=== PATIENT | male | born 1930 | race Caucasian/White ===

== ENCOUNTER 2020-11-22 12:00 | Observation (INO) | payer MEDICARE, MEDICAID ==
[2020-11-22 13:02] LABS: ANION GAP 9.2 mmol/L (5-15); CHLORIDE,CL 105 mmol/L (98-107); SODIUM,NA 140 mmol/L (136-145)
--- NOTE | 2020-11-22 13:05 | CT ---
[id number] CT/CT Head WO IV EXAM: CT Head WO IV CLINICAL DATA: WEAKNESS. COMPARISON STUDY: None FINDINGS: No intracranial hemorrhage, extra-axial fluid collection, mass, or acute ischemia. Generalized parenchymal atrophy with scattered areas of nonspecific white matter disease, commonly seen as sequela of chronic microvascular ischemia. Soft tissues are unremarkable. Paranasal sinuses and mastoid air cells are clear. IMPRESSION: No acute intracranial findings. Tom Oakley DO 11/22/20 [id number] Thank you for allowing us to participate in the care of your patient.
--- NOTE | 2020-11-22 13:09 | CR ---
[id number] RAD/RAD Chest PA or AP 1V EXAM: RAD Chest PA or AP 1V INDICATION: WEAKNESS. COMPARISON: November 22, 2020. DISCUSSION: Cardiomediastinal silhouette is stable in size and contour. No infiltrate, effusion, pneumothorax, or edema. IMPRESSION: No acute cardiopulmonary abnormality. Tom Oakley DO 11/22/20 [phone] Thank you for allowing us to participate in the care of your patient.
[2020-11-22 13:26] LABS: BARBITURATE SCREEN,URINE NEGATIVE (NEGATIVE); BENZODIAZEPINES SCREEN,URINE NEGATIVE (NEGATIVE); METHAMPHETAMINE SCREEN, URINE NEGATIVE (NEGATIVE); THC SCREEN,URINE 50 NG/ML NEGATIVE (NEGATIVE)
[2020-11-22 13:27] LABS: BUPRENORPHINE SCREEN,URINE NEGATIVE (NEGATIVE)
--- NOTE | 2020-11-22 13:32 | EDM.PDOC ---
ED HPI GENERAL MEDICAL PROBLEM - General Stated Complaint: ER Time Seen by Provider: 11/22/20 12:00 Source of Information: Reports: Patient History Limitations: Reports: No Limitations - History of Present Illness INITIAL COMMENTS - FREE TEXT/NARRATIVE: Pt. presents to ER via EMS. They state that a friend of the patient called 911 at patient's request. Pt. has a history of severe Parkinson's disease. He also previously lived in [place]. The combination of the Parkinson's disease and [place] accent make it very difficult to understand the patient. Pt. offers no complaint. We were able to ascertain that he feels weak and is unsteady on his feet. Pt. was able to relate that he was not experiencing any chest pain or shortness of breath. Denies any dysuria. No headache. No numbness/tingling in extremities or face. Denies any abdominal discomfort. No chills. No nausea or vomiting. His medical records from [facility] were reviewed, and he did have a productive cough in the clinic on 11/09/2020 but was not started on any antibiotics. His lung sounds today are clear. Pt. neighbor, Prabha Steel ([phone]) did contact the ER. She and her , George Levi ([phone]) indicated that they are the patient's primary caregivers, and look in on him several times a day. They state that "patient has been going downhill" for about 2 weeks. They state that he has not been getting off of his chair much. She states that he has not been eating his home delivered meals. Attempted to contact patient's ex , dora, who is listed as next of kin but she did not answer. Neighbors have been primarily providing all of Emil's care, getting changed, bringing meals, helping him with ADLs and shopping, etc. Onset: Today Onset Date: 11/22/20 Location: Reports: Generalized - Related Data Allergies Allergy/AdvReac Type Severity Reaction Status Date / Time No Known Allergies Allergy Verified 11/22/20 13:49 ED ROS GENERAL - Review of Systems Review Of Systems: Unable To Obtain Reason Not Obtained: speech difficulty. See HPI. ED EXAM, GENERAL - Physical Exam Exam: See Below Exam Limited By: No Limitations General Appearance: Alert, WD/WN, No Apparent Distress Eye Exam: Bilateral Eye: EOMI, Normal Fundi Throat/Mouth: Normal Lips, Normal Oropharynx, No Airway Compromise Head: Atraumatic, Normocephalic Neck: Supple, Non-Tender Respiratory/Chest: No Respiratory Distress, Lungs Clear, Normal Breath Sounds, No Accessory Muscle Use, Chest Non-Tender Cardiovascular: Normal Peripheral Pulses, Regular Rate, Rhythm, No Murmur Peripheral Pulses: 4+: Radial (L) GI/Abdominal: Soft, Non-Tender, No Distention, No Mass (Male) Exam: Deferred Rectal (Males) Exam: Deferred, Other (large amount of hard stool stuck in hair of buttocks) Back Exam: Normal Inspection Extremities: Normal Inspection, Normal Range of Motion, Non-Tender, No Pedal Edema, Normal Capillary Refill Neurological: Alert, CN II-XII Intact, No Motor/Sensory Deficits, Other (Equal outside sales consultant strength. Equal strength with plantar and dorsiflexion. No facial droop. No obvious focal neuro findings, but pt. is largely unable to submit to neuro exam. Significant tremor noted.) Psychiatric: Flat Affect Skin Exam: Warm, Intact, Normal Color, No Rash Lymphatic: No Adenopathy Course - Vital Signs Last Recorded V/S: Last Vital Signs Temp 36.9 C 11/22/20 12:00 Pulse 81 11/22/20 12:00 Resp 16 11/22/20 12:00 BP 167/89 H 11/22/20 12:00 Pulse Ox 99 11/22/20 12:00 - Orders/Labs/Meds Orders: Active Orders 24 hr Category Date Time Status Patient Status [ADT] Routine ADT 11/22/20 14:02 Ordered CULTURE BLOOD [BC] Stat Lab 11/22/20 12:28 Received CULTURE BLOOD [BC] Stat Lab 11/22/20 12:31 Received Sodium Chloride 0.9% [Saline Flush] Med 11/22/20 12:13 Active 10 ml FLUSH ASDIRECTED PRN Blood Culture x2 Reflex Set [OM.PC] Stat Oth 11/22/20 12:14 Ordered Peripheral IV Insertion Adult [OM.PC] Routine Oth 11/22/20 12:14 Ordered Medication Orders Sodium Chloride (Sodium Chloride 0.9% 10 Ml Syringe) 10 ml FLUSH ASDIRECTED PRN PRN Reason: Keep Vein Open Labs: Laboratory Tests 11/22/20 11/22/20 11/22/20 Range/Units 12:25 12:28 12:28 WBC 5.8 (4.0-10.0) x10^3/uL RBC 4.17 L (4.5-6.0) x10^6/uL Hgb 13.7 L (14.0-18.0) g/dL Hct 39.9 L (40.0-52.0) % MCV 95.7 H (78.0-93.0) fL MCH 32.9 H (26.0-32.0) pg MCHC 34.3 (32.0-36.0) g/dL RDW Coeff of Kala 13.1 (10.0-15.0) % Plt Count 106 L (130-400) x10^3/uL Immature Gran % (Auto) 0.20 (0.00-0.43) % Neut % (Auto) 69.3 (50.0-80.0) % Lymph % (Auto) 18.3 L (25.0-50.0) % [place] % (Auto) 6.5 (2.0-11.0) % Eos % (Auto) 5.0 H (0.0-4.0) % Baso % (Auto) 0.7 (0.2-1.2) % Neut # (Auto) 4.1 (1.8-7.7) x10^3/uL Lymph # (Auto) 1.1 (1.0-4.8) x10^3/uL [place] # (Auto) 0.4 (0.0-0.8) x10^3/uL Eos # (Auto) 0.3 (0.0-0.5) x10^3/uL Baso # (Auto) 0.0 (0.0-0.2) x10^3/uL Immature Gran # (Auto) 0.01 (0.00-0.07) x10^3/uL PT 11.6 (9.9-12.5) SEC INR 1.0 L (2.0-3.5) APTT (25.6-32.8) SEC Sodium (136-145) mmol/L Potassium (3.5-5.1) mmol/L Chloride (98-107) mmol/L Carbon Dioxide (21-32) mmol/L Anion Gap (5-15) mmol/L BUN (7-18) mg/dL Creatinine (0.70-1.30) mg/dL Est Cr Clr Drug Dosing Estimated GFR (MDRD) Glucose (70-99) mg/dL Lactic Acid (0.4-2.0) mmol/L Calcium (8.5-10.1) mg/dL Corrected Calcium (8.5-10.1) mg/dL Phosphorus (2.6-4.7) mg/dL Magnesium (1.8-2.4) mg/dL Total Bilirubin (0.2-1.0) mg/dL AST (15-37) U/L ALT (16-63) U/L Alkaline Phosphatase (46-116) U/L Troponin I High Sens (<=76) ng/L C-Reactive Protein (<=0.9) mg/dL NT-Pro-B Natriuret Pep (<=450) pg/mL Total Protein (6.4-8.2) g/dL Albumin (3.4-5.0) g/dL Globulin Albumin/Globulin Ratio TSH, Ultra Sensitive (0.358-3.74) uIU/mL Urine Color (YELLOW) Urine Appearance (CLEAR) Urine pH (5.0-8.0) Ur Specific [place] Urine Protein (NEGATIVE) mg/dL Urine Glucose (UA) (NEGATIVE) mg/dL Urine Ketones (NEGATIVE) mg/dL Urine Occult Blood (NEGATIVE) Urine Nitrite (NEGATIVE) Urine Bilirubin (NEGATIVE) Urine Urobilinogen (0.2) EU/dL Ur Leukocyte Esterase (NEGATIVE) Urine Opiates Screen (NEGATIVE) Ur Buprenorphine Scrn (NEGATIVE) Ur Oxycodone Screen (NEGATIVE) Urine Methadone Screen (NEGATIVE) Ur Barbiturates Screen (NEGATIVE) Ur Phencyclidine Scrn (NEGATIVE) Ur Amphetamine Screen (NEGATIVE) U Methamphetamines Scrn (NEGATIVE) Urine MDMA Screen (NEGATIVE) U Benzodiazepines Scrn (NEGATIVE) U Cocaine Metab Screen (NEGATIVE) U Marijuana (THC) Screen (NEGATIVE) Ethyl Alcohol (0-3) mg/dL SARS CoV-2 RNA Rapid GENARO Negative (NEGATIVE) 11/22/20 11/22/20 11/22/20 Range/Units 12:28 12:28 12:28 WBC (4.0-10.0) x10^3/uL RBC (4.5-6.0) x10^6/uL Hgb (14.0-18.0) g/dL Hct (40.0-52.0) % MCV (78.0-93.0) fL MCH (26.0-32.0) pg MCHC (32.0-36.0) g/dL RDW Coeff of Kala (10.0-15.0) % Plt Count (130-400) x10^3/uL Immature Gran % (Auto) (0.00-0.43) % Neut % (Auto) (50.0-80.0) % Lymph % (Auto) (25.0-50.0) % [place] % (Auto) (2.0-11.0) % Eos % (Auto) (0.0-4.0) % Baso % (Auto) (0.2-1.2) % Neut # (Auto) (1.8-7.7) x10^3/uL Lymph # (Auto) (1.0-4.8) x10^3/uL [place] # (Auto) (0.0-0.8) x10^3/uL Eos # (Auto) (0.0-0.5) x10^3/uL Baso # (Auto) (0.0-0.2) x10^3/uL Immature Gran # (Auto) (0.00-0.07) x10^3/uL PT (9.9-12.5) SEC INR (2.0-3.5) APTT 24.1 L (25.6-32.8) SEC Sodium 140 (136-145) mmol/L Potassium 4.2 (3.5-5.1) mmol/L Chloride 105 (98-107) mmol/L Carbon Dioxide 30 (21-32) mmol/L Anion Gap 9.2 (5-15) mmol/L BUN 24 H (7-18) mg/dL Creatinine 0.8 (0.70-1.30) mg/dL Est Cr Clr Drug Dosing TNP Estimated GFR (MDRD) > 60 Glucose 97 (70-99) mg/dL Lactic Acid 0.9 (0.4-2.0) mmol/L Calcium 9.0 (8.5-10.1) mg/dL Corrected Calcium 9.2 (8.5-10.1) mg/dL Phosphorus 3.1 (2.6-4.7) mg/dL Magnesium 2.0 (1.8-2.4) mg/dL Total Bilirubin 0.6 (0.2-1.0) mg/dL AST 20 (15-37) U/L ALT 21 (16-63) U/L Alkaline Phosphatase 74 (46-116) U/L Troponin I High Sens 13 (<=76) ng/L C-Reactive Protein < 0.2 (<=0.9) mg/dL NT-Pro-B Natriuret Pep 1167 H (<=450) pg/mL Total Protein 6.8 (6.4-8.2) g/dL Albumin 3.7 (3.4-5.0) g/dL Globulin 3.1 Albumin/Globulin Ratio 1.19 TSH, Ultra Sensitive 0.079 L (0.358-3.74) uIU/mL Urine Color (YELLOW) Urine Appearance (CLEAR) Urine pH (5.0-8.0) Ur Specific [place] Urine Protein (NEGATIVE) mg/dL Urine Glucose (UA) (NEGATIVE) mg/dL Urine Ketones (NEGATIVE) mg/dL Urine Occult Blood (NEGATIVE) Urine Nitrite (NEGATIVE) Urine Bilirubin (NEGATIVE) Urine Urobilinogen (0.2) EU/dL Ur Leukocyte Esterase (NEGATIVE) Urine Opiates Screen (NEGATIVE) Ur Buprenorphine Scrn (NEGATIVE) Ur Oxycodone Screen (NEGATIVE) Urine Methadone Screen (NEGATIVE) Ur Barbiturates Screen (NEGATIVE) Ur Phencyclidine Scrn (NEGATIVE) Ur Amphetamine Screen (NEGATIVE) U Methamphetamines Scrn (NEGATIVE) Urine MDMA Screen (NEGATIVE) U Benzodiazepines Scrn (NEGATIVE) U Cocaine Metab Screen (NEGATIVE) U Marijuana (THC) Screen (NEGATIVE) Ethyl Alcohol < 3 (0-3) mg/dL SARS CoV-2 RNA Rapid GENARO (NEGATIVE) 11/22/20 11/22/20 Range/Units 13:20 13:20 WBC (4.0-10.0) x10^3/uL RBC (4.5-6.0) x10^6/uL Hgb (14.0-18.0) g/dL Hct (40.0-52.0) % MCV (78.0-93.0) fL MCH (26.0-32.0) pg MCHC (32.0-36.0) g/dL RDW Coeff of Kala (10.0-15.0) % Plt Count (130-400) x10^3/uL Immature Gran % (Auto) (0.00-0.43) % Neut % (Auto) (50.0-80.0) % Lymph % (Auto) (25.0-50.0) % [place] % (Auto) (2.0-11.0) % Eos % (Auto) (0.0-4.0) % Baso % (Auto) (0.2-1.2) % Neut # (Auto) (1.8-7.7) x10^3/uL Lymph # (Auto) (1.0-4.8) x10^3/uL [place] # (Auto) (0.0-0.8) x10^3/uL Eos # (Auto) (0.0-0.5) x10^3/uL Baso # (Auto) (0.0-0.2) x10^3/uL Immature Gran # (Auto) (0.00-0.07) x10^3/uL PT (9.9-12.5) SEC INR (2.0-3.5) APTT (25.6-32.8) SEC Sodium (136-145) mmol/L Potassium (3.5-5.1) mmol/L Chloride (98-107) mmol/L Carbon Dioxide (21-32) mmol/L Anion Gap (5-15) mmol/L BUN (7-18) mg/dL Creatinine (0.70-1.30) mg/dL Est Cr Clr Drug Dosing Estimated GFR (MDRD) Glucose (70-99) mg/dL Lactic Acid (0.4-2.0) mmol/L Calcium (8.5-10.1) mg/dL Corrected Calcium (8.5-10.1) mg/dL Phosphorus (2.6-4.7) mg/dL Magnesium (1.8-2.4) mg/dL Total Bilirubin (0.2-1.0) mg/dL AST (15-37) U/L ALT (16-63) U/L Alkaline Phosphatase (46-116) U/L Troponin I High Sens (<=76) ng/L C-Reactive Protein (<=0.9) mg/dL NT-Pro-B Natriuret Pep (<=450) pg/mL Total Protein (6.4-8.2) g/dL Albumin (3.4-5.0) g/dL Globulin Albumin/Globulin Ratio TSH, Ultra Sensitive (0.358-3.74) uIU/mL Urine Color Light yellow (YELLOW) Urine Appearance Clear (CLEAR) Urine pH 7.0 (5.0-8.0) Ur Specific [place] 1.025 Urine Protein Negative (NEGATIVE) mg/dL Urine Glucose (UA) Negative (NEGATIVE) mg/dL Urine Ketones Negative (NEGATIVE) mg/dL Urine Occult Blood Negative (NEGATIVE) Urine Nitrite Negative (NEGATIVE) Urine Bilirubin Negative (NEGATIVE) Urine Urobilinogen 1.0 (0.2) EU/dL Ur Leukocyte Esterase Negative (NEGATIVE) Urine Opiates Screen Negative (NEGATIVE) Ur Buprenorphine Scrn Negative (NEGATIVE) Ur Oxycodone Screen Negative (NEGATIVE) Urine Methadone Screen Negative (NEGATIVE) Ur Barbiturates Screen Negative (NEGATIVE) Ur Phencyclidine Scrn Negative (NEGATIVE) Ur Amphetamine Screen Negative (NEGATIVE) U Methamphetamines Scrn Negative (NEGATIVE) Urine MDMA Screen Negative (NEGATIVE) U Benzodiazepines Scrn Negative (NEGATIVE) U Cocaine Metab Screen Negative (NEGATIVE) U Marijuana (THC) Screen Negative (NEGATIVE) Ethyl Alcohol (0-3) mg/dL SARS CoV-2 RNA Rapid GENARO (NEGATIVE) Meds: Medications Generic Name Dose Route Start Last Admin Trade Name Freq PRN Reason Stop Dose Admin Sodium Chloride 10 ml 11/22/20 12:13 Sodium Chloride 0.9% 10 Ml Syringe FLUSH ASDIRECTED PRN Keep Vein Open - Radiology Interpretation Free Text/Narrative:: CT brain negative for acute pathology Chest x-ray negative for acute pathology Departure - Departure Time of Disposition: 14:25 Disposition: Refer to Observation Clinical Impression: Weakness, Parkinson disease - Discharge Information Sepsis Event Note (ED) - Focused Exam Vital Signs: Vital Signs Temp Pulse Resp BP Pulse Ox 11/22/20 12:00 36.9 C 81 16 167/89 H 99 - Problem List Review Problem List Initiated/Reviewed/Updated: Yes - My Orders Last 24 Hours: My Active Orders 11/22/20 12:13 Sodium Chloride 0.9% [Saline Flush] 10 ml FLUSH ASDIRECTED PRN 11/22/20 12:14 Blood Culture x2 Reflex Set [OM.PC] Stat Peripheral IV Insertion Adult [OM.PC] Routine 11/22/20 12:28 CULTURE BLOOD [BC] Stat 11/22/20 12:31 CULTURE BLOOD [BC] Stat 11/22/20 14:02 Patient Status [ADT] Routine - Assessment/Plan Last 24 Hours: My Active Orders 11/22/20 12:13 Sodium Chloride 0.9% [Saline Flush] 10 ml FLUSH ASDIRECTED PRN 11/22/20 12:14 Blood Culture x2 Reflex Set [OM.PC] Stat Peripheral IV Insertion Adult [OM.PC] Routine 11/22/20 12:28 CULTURE BLOOD [BC] Stat 11/22/20 12:31 CULTURE BLOOD [BC] Stat 11/22/20 14:02 Patient Status [ADT] Routine Plan: Pt. will be admitted observation. No acute cause for patient's weakness found at this point. Discussed findings with caregivers and patient. He is unable to stand or walk, has not been able to eat or drink. Unable to ascertain code status from patient despite numerous attempts to do so. He did not seem to understand specifically what was being asked.Pt. will be kept a code 1 at this point. Will start patient on maintenance fluids for hydration. Attempted to contact [facility] [employer] to discuss patient, but there was no answer. Will order PT and OT for Monday, as well as health care social worker for possible placement in LTC facility. Does not meet criteria for acute admission.
[2020-11-22] MEDS ORDERED: Aspirin 325 MG Tab.EC PO PRN (15:35)
[2020-11-22] MEDS: Carbidopa/Levodopa 25-100 MG Tab PO SCH ×2 (19:27→19:31)
[2020-11-22] MEDS: Budesonide 0.5 MG/2 ML Neb Susp INH SCH (19:27)
[2020-11-22] MEDS: Donepezil 10 MG Tab PO SCH ×2 (19:27→19:31)
[2020-11-22] MEDS ORDERED: BUDESONIDE 90 MCG INH SCH (20:00)
[2020-11-23] MEDS: Sodium Chloride 0.9% 10 ML Syringe FLUSH PRN ×2 (06:16→19:56)
[2020-11-23] MEDS: Budesonide 0.5 MG/2 ML Neb Susp INH SCH ×2 (06:16→19:56)
[2020-11-23] MEDS: Cholecalciferol (Vitamin D3) 25 MCG Tab PO SCH (07:25)
[2020-11-23] MEDS: Carbidopa/Levodopa 25-100 MG Tab PO SCH ×3 (07:25→19:54)
[2020-11-23] MEDS: Multivitamins with Iron/Calcium/Folic Acid/Minerals Tab PO SCH (07:25)
[2020-11-23] MEDS: Furosemide 20 MG Tab PO SCH (07:25)
[2020-11-23] MEDS: Enoxaparin 40 MG/0.4 ML Syringe SUBCUT SCH (12:00)
[2020-11-23] MEDS: Donepezil 10 MG Tab PO SCH (19:54)
--- NOTE | 2020-11-24 07:12 | PCM.PN ---
- General Info Date of Service: 11/24/20 Admission Dx/Problem (Free Text): Pt. continues to be quite weak. Discussed findings with pt. cousin. His appetite has improved and he has been drinking. He has not had any fever or chills. No nausea, vomiting, or diarrhea. He has been up using a walker. No new focal neuro symptoms. No numbness/tingling in extremities. No problems with speech. No facial droop. Denies any vision loss or change. Functional Status: Reports: Pain Controlled - Review of Systems General: Reports: No Symptoms HEENT: Reports: No Symptoms Pulmonary: Reports: No Symptoms Cardiovascular: Reports: No Symptoms Gastrointestinal: Reports: No Symptoms Genitourinary: Reports: No Symptoms Musculoskeletal: Reports: No Symptoms Skin: Reports: No Symptoms Neurological: Reports: Weakness Psychiatric: Reports: No Symptoms - Patient Data Vitals - Most Recent: Last Vital Signs Temp 36.6 C 11/24/20 06:00 Pulse 82 11/24/20 06:00 Resp 16 11/24/20 06:00 BP 136/80 11/24/20 06:00 Pulse Ox 95 11/24/20 06:00 Weight - Most Recent: 75.75 kg I&O - Last 24 Hours: Intake & Output 11/23/20 11/24/20 11/24/20 22:59 06:59 14:59 Intake Total 50 Output Total 65 Balance -15 Lab Results Last 24 Hours: Laboratory Results - last 24 hr 11/23/20 Range/Units 07:15 WBC 5.8 (4.0-10.0) x10^3/uL RBC 4.21 L (4.5-6.0) x10^6/uL Hgb 13.9 L (14.0-18.0) g/dL Hct 39.8 L (40.0-52.0) % MCV 94.5 H (78.0-93.0) fL MCH 33.0 H (26.0-32.0) pg MCHC 34.9 (32.0-36.0) g/dL RDW Coeff of Kala 13.2 (10.0-15.0) % Plt Count 105 L (130-400) x10^3/uL [facility]us Results Last 24 Hours: Microbiology 11/22/20 12:31 Aerobic Blood Culture - Preliminary Blood - Venous - Lab Draw NO GROWTH AFTER 1 DAY Anaerobic Blood Culture - Preliminary NO GROWTH AFTER 1 DAY 11/22/20 12:28 Aerobic Blood Culture - Preliminary Blood - Venous NO GROWTH AFTER 1 DAY Anaerobic Blood Culture - Preliminary NO GROWTH AFTER 1 DAY Med Orders - Current: Current Medications Aspirin (Aspirin 325 Mg Tab.Ec) 325 mg PO DAILY PRN PRN Reason: Pain Budesonide (Budesonide 0.5 Mg/2 Ml Neb Susp) 1 mg INH BIDRT [facility] Last Admin: 11/23/20 19:56 Dose: Not Given Documented by: Carbidopa/Levodopa (Carbidopa/Levodopa 25-100 Mg Tab) 1 tab PO TID [facility] Last Admin: 11/23/20 19:54 Dose: Not Given Documented by: Cholecalciferol (Cholecalciferol (Vitamin D3) 25 Mcg Tab) 25 mcg PO DAILY [facility] Last Admin: 11/23/20 07:25 Dose: 25 mcg Documented by: Donepezil HCl (Donepezil 10 Mg Tab) 10 mg PO BEDTIME [facility] Last Admin: 11/23/20 19:54 Dose: Not Given Documented by: Enoxaparin Sodium (Enoxaparin 40 Mg/0.4 Ml Syringe) 40 mg SUBCUT DAILY@1200 [facility] Last Admin: 11/23/20 12:00 Dose: Not Given Documented by: Furosemide (Furosemide 20 Mg Tab) 20 mg PO DAILY [facility] Last Admin: 11/23/20 07:25 Dose: 20 mg Documented by: Multivitamins/Minerals (Multivitamins With Iron/Calcium/Folic Acid/Minerals Tab) 1 tab PO DAILY [facility] Last Admin: 11/23/20 07:25 Dose: 1 tab Documented by: Sodium Chloride (Sodium Chloride 0.9% 10 Ml Syringe) 10 ml FLUSH ASDIRECTED PRN PRN Reason: Keep Vein Open Last Admin: 11/23/20 19:56 Dose: 10 ml Documented by: - Exam Urinary Catheter Total Time: 0Days 3Hours General: Alert, Oriented HEENT: Pupils Equal, Pupils Reactive, EOMI, Mucous Membr. Moist/Scalp Level Neck: Supple Lungs: Clear to Auscultation, Normal Respiratory Effort Cardiovascular: Regular Rate, Regular Rhythm Skin: Warm, Dry, Intact Wound/Incisions: Healing Well Neurological: No New Focal Deficit Psy/Mental Status: Alert, Normal Affect, Normal Mood - Patient Data Lab Results Last 24 hrs: Laboratory Results - last 24 hr 11/23/20 Range/Units 07:15 WBC 5.8 (4.0-10.0) x10^3/uL RBC 4.21 L (4.5-6.0) x10^6/uL Hgb 13.9 L (14.0-18.0) g/dL Hct 39.8 L (40.0-52.0) % MCV 94.5 H (78.0-93.0) fL MCH 33.0 H (26.0-32.0) pg MCHC 34.9 (32.0-36.0) g/dL RDW Coeff of Kala 13.2 (10.0-15.0) % Plt Count 105 L (130-400) x10^3/uL Result Diagrams: 11/23/20 07:15 11/22/20 12:28 Justus Results Last 24 hrs: Microbiology 11/22/20 12:31 Aerobic Blood Culture - Preliminary Blood - Venous - Lab Draw NO GROWTH AFTER 1 DAY Anaerobic Blood Culture - Preliminary NO GROWTH AFTER 1 DAY 11/22/20 12:28 Aerobic Blood Culture - Preliminary Blood - Venous NO GROWTH AFTER 1 DAY Anaerobic Blood Culture - Preliminary NO GROWTH AFTER 1 DAY Sepsis Event Note - Evaluation Sepsis Screening Result: No Definite Risk - Focused Exam Vital Signs: Vital Signs Temp Pulse Resp BP Pulse Ox 11/24/20 06:00 36.6 C 82 16 136/80 95 11/23/20 22:00 36.9 C 105 H 16 145/86 H 93 L - Problem List Review Problem List Initiated/Reviewed/Updated: Yes - My Orders Last 24 Hours: My Active Orders 11/23/20 08:00 Cholecalciferol (Vitamin D3) [Vitamin D3] 25 mcg PO DAILY Furosemide [Lasix] 20 mg PO DAILY Multivitamins w-Iron/Ca/FA/Min [Thera M Plus] 1 tab PO DAILY 11/23/20 12:00 Enoxaparin [Lovenox] 40 mg SUBCUT DAILY@1200 11/26/20 07:00 CBC W/O DIFF,HEMOGRAM [HEME] Q3D 11/29/20 07:00 CBC W/O DIFF,HEMOGRAM [HEME] Q3D 12/02/20 07:00 CBC W/O DIFF,HEMOGRAM [HEME] Q3D 12/05/20 07:00 CBC W/O DIFF,HEMOGRAM [HEME] Q3D 12/08/20 07:00 CBC W/O DIFF,HEMOGRAM [HEME] Q3D 12/11/20 07:00 CBC W/O DIFF,HEMOGRAM [HEME] Q3D - Plan Plan:: Continue observation admission. PT and OT to see tomorrow to discuss placement in LTC vs. assisted living. Did discuss this with patient and his cousin.
[2020-11-24] MEDS: Budesonide 0.5 MG/2 ML Neb Susp INH SCH ×2 (07:45→21:07)
[2020-11-24] MEDS: Carbidopa/Levodopa 25-100 MG Tab PO SCH ×3 (08:24→21:07)
[2020-11-24] MEDS: Multivitamins with Iron/Calcium/Folic Acid/Minerals Tab PO SCH (08:24)
[2020-11-24] MEDS: Furosemide 20 MG Tab PO SCH (08:24)
[2020-11-24] MEDS: Cholecalciferol (Vitamin D3) 25 MCG Tab PO SCH (08:24)
[2020-11-24] MEDS: Enoxaparin 40 MG/0.4 ML Syringe SUBCUT SCH (11:44)
--- NOTE | 2020-11-24 18:46 | PCM.DCSUM1 ---
Discharge Summary - Discharge Data Discharge Date: 11/24/20 Discharge Disposition: DC/Tfer W/I Hosp To Swing 61 Condition: Good - Referral to Home Health Primary Care Physician: Mayte Howard NP - Discharge Diagnosis/Problem(s) (1) Parkinson disease SNOMED Code(s): 47818705 ICD Code: G20 - PARKINSON'S DISEASE Status: Acute Current Visit: No Problem Details: Stable at baseline. Continue home medications. (2) Weakness SNOMED Code(s): 17311577 ICD Code: R53.1 - WEAKNESS Status: Acute Current Visit: No Problem Details: Weakness generalized due to deconditioning age as well as parkinsonian disease. Unable to care for himself for ADLs at home. Social work to work with the patient on placement at the [facility]. - Patient Summary/Data Consults: Consultations 11/22/20 15:40 Consult to Physical Therapy [PT Evaluation and Treatment] [CONS] Routine 11/22/20 15:41 Consult to Case Management/Security And Compliance Analyst [CONS] Routine OT Evaluation and Treatment [CONS] Routine Hospital Course: Patient was admitted to the hospital on 11-22-20 under observation for concerns from the emergency department of generalized weakness. The patient does live at home by himself and his primary caregiver is her neighbors who have noticed over the past 2 weeks he has not been doing much other than sitting in the chair. Therefore 911 was contacted. Discussion with family it sounds like he has had deterioration over the past couple of months. There was no acute findings in the emergency department or complaints from the patient other than generalized weakness and deconditioning. He was evaluated by physical therapy and Occupational Therapy and it was determined that he needs quite a bit of assistance with his ADLs and placement in a fci is best course of action at this time. Patient offers up no complaints today. He would like to be a CPR only no intubation CODE STATUS. He will be switched to swing bed status today and plan on looking for fci placement for him tomorrow. - Discharge Plan Home Medications: Home Meds Aspirin [Aspirin EC] 325 mg PO DAILY PRN 11/22/20 [History] Budesonide [Pulmicort Flexhaler] 1 puff INH BID 11/22/20 [History] Carbidopa/Levodopa [Sinemet 25-100 mg Tablet] 1 each PO TID 11/22/20 [History] Cholecalciferol (Vitamin D3) [Vitamin D3] 1,000 unit PO DAILY 11/22/20 [History] Donepezil HCl 10 mg PO BEDTIME 11/22/20 [History] Furosemide [Lasix] 20 mg PO DAILY 11/22/20 [History] Multivitamin with Minerals [Multiple Vitamin] 1 tab PO DAILY 11/22/20 [History] Forms: ED Department Discharge Referrals: Mayte Howard, REHABILITATION SERVICES AIDE [Primary Care Provider] - - Discharge Summary/Plan Comment DC Time >30 min.: Yes Total # of Minutes for Discharge Time: 60 minutes reviewing his chart and preparing for swingbed admission discussion with case management and PT/OT and family. Please use this note as discharge summary and admission note for swingbed status. Plan will be to get patient to a fci when able. - General Info Date of Service: 11/24/20 Admission Dx/Problem (Free Text: Weakness Failure to thrive Subjective Update: Patient has been in the hospital under observation for the past 2 days. He has come from home with what appears to be some chronic deterioration weakness and failure to be able to take care of himself at home. Today he offers up no complaints. He has no headache no visual acuity changes. No nausea no vomiting. His appetite has been good. No chest pain no shortness of breath or difficulty breathing. No cough or congestion. He has been urinating and having bowel movements. He was evaluated by physical therapy and Occupational Therapy today and he needs quite a bit of assistance with home his ADLs especially with his history of Parkinson's type disease. Social work visited with him and he will be working on placement at a fci tomorrow. Functional Status: Reports: Pain Controlled - Patient Data Vitals - Most Recent: Last Vital Signs Temp 97.1 F 11/24/20 14:00 Pulse 115 H 11/24/20 14:00 Resp 20 11/24/20 14:00 BP 112/45 L 11/24/20 14:00 Pulse Ox 99 11/24/20 14:00 Weight - Most Recent: 167 lb I&O - Last 24 hours: Intake & Output 11/24/20 11/24/20 11/24/20 06:59 14:59 22:59 Intake Total 50 360 Output Total 65 Balance -15 360 BONNIE Results - Last 24 hrs: Microbiology 11/22/20 12:31 Aerobic Blood Culture - Preliminary Blood - Venous - Lab Draw NO GROWTH AFTER 2 DAYS Anaerobic Blood Culture - Preliminary NO GROWTH AFTER 2 DAYS 11/22/20 12:28 Aerobic Blood Culture - Preliminary Blood - Venous NO GROWTH AFTER 2 DAYS Anaerobic Blood Culture - Preliminary NO GROWTH AFTER 2 DAYS Med Orders - Current: Current Medications Aspirin (Aspirin 325 Mg Tab.Ec) 325 mg PO DAILY PRN PRN Reason: Pain Budesonide (Budesonide 0.5 Mg/2 Ml Neb Susp) 1 mg INH BIDRT [facility] Last Admin: 11/24/20 07:45 Dose: 1 mg Documented by: Carbidopa/Levodopa (Carbidopa/Levodopa 25-100 Mg Tab) 1 tab PO TID [facility] Last Admin: 11/24/20 11:42 Dose: 1 tab Documented by: Cholecalciferol (Cholecalciferol (Vitamin D3) 25 Mcg Tab) 25 mcg PO DAILY [facility] Last Admin: 11/24/20 08:24 Dose: 25 mcg Documented by: Donepezil HCl (Donepezil 10 Mg Tab) 10 mg PO BEDTIME [facility] Last Admin: 11/23/20 19:54 Dose: Not Given Documented by: Enoxaparin Sodium (Enoxaparin 40 Mg/0.4 Ml Syringe) 40 mg SUBCUT DAILY@1200 [facility] Last Admin: 11/24/20 11:44 Dose: 40 mg Documented by: Furosemide (Furosemide 20 Mg Tab) 20 mg PO DAILY [facility] Last Admin: 11/24/20 08:24 Dose: 20 mg Documented by: Multivitamins/Minerals (Multivitamins With Iron/Calcium/Folic Acid/Minerals Tab) 1 tab PO DAILY [facility] Last Admin: 11/24/20 08:24 Dose: 1 tab Documented by: Sodium Chloride (Sodium Chloride 0.9% 10 Ml Syringe) 10 ml FLUSH ASDIRECTED PRN PRN Reason: Keep Vein Open Last Admin: 11/23/20 19:56 Dose: 10 ml Documented by: - Exam General: Reports: Alert, Oriented (He recognizes his family in the room. He knows that he is at the hospital. He knows what year it is. He denies any confusion at this time.) HEENT: Reports: Pupils Equal, Pupils Reactive, EOMI Neck: Reports: Supple Lungs: Reports: Clear to Auscultation, Normal Respiratory Effort Cardiovascular: Reports: Regular Rate, Regular Rhythm GI/Abdominal Exam: Normal Bowel Sounds, Soft, Non-Tender (Male) Exam: Deferred Rectal (Males) Exam: Deferred Back Exam: Reports: Normal Inspection, Full Range of Motion Extremities: Normal Inspection, Normal Range of Motion, Non-Tender, Pedal Edema (Scant bilateral pretibial edema) Skin: Reports: Warm, Dry, Intact Neurological: Reports: No New Focal Deficit Psy/Mental Status: Reports: Alert, Normal Affect, Normal Mood
[2020-11-24 19:24] VITALS: BP 108/46; PULSE 69
[2020-11-24] MEDS: Donepezil 10 MG Tab PO SCH (21:07)
== END 2020-11-24 21:10 | disposition swing bed (61) ==
LOC: VM.ED 12:00 → VM.MS 14:02
PROVIDERS: ADMIT Physician Assistant; ATTEND Physician Assistant
DX: R53.1 Weakness (principal); G20 Parkinson's disease; Z79.82 Long term (current) use of aspirin; Z79.899 Other long term (current) drug therapy; Z20.822 Contact with and (suspected) exposure to COVID-19
CPT/HCPCS: 36415; 51701; 70450; 71045; 80053; 80305-QW; 80307; 81003; 83605; 83735; 83880; 84100; 84443; 84484; 85025; 85027; 85610; 85730; 86140; 87040; 93005; 94640; 96372; 97161-GP; 97165-GO; 99217; 99220; 99225; 99285-25; A9270-GY; G0378; J1650; U0002

== ENCOUNTER 2020-11-24 19:04 | Inpatient (IN) | payer MEDICAID, MEDICARE ==
[2020-11-24] MEDS ORDERED: Sodium Chloride 0.9% 10 ML Syringe FLUSH PRN ×2 (19:26)
[2020-11-24] MEDS ORDERED: ASPIRIN 325 MG PO PRN (19:26)
[2020-11-24] MEDS ORDERED: BUDESONIDE 0.5 MG/2 ML INH SCH (20:00)
--- NOTE | 2020-11-25 11:17 | PCM.PN ---
- General Info Date of Service: 11/25/20 - Patient Data Vitals - Most Recent: Last Vital Signs Temp 97.7 F 11/25/20 06:00 Pulse 70 11/25/20 06:00 Resp 20 11/25/20 06:00 BP 110/50 L 11/25/20 06:00 Pulse Ox 97 11/25/20 06:00 Weight - Most Recent: 167 lb I&O - Last 24 Hours: Intake & Output 11/24/20 11/25/20 11/25/20 22:59 06:59 14:59 Intake Total 300 360 Balance 300 360 Lab Results Last 24 Hours: Laboratory Results - last 24 hr 11/25/20 Range/Units 06:35 WBC 5.9 (4.0-10.0) x10^3/uL RBC 4.08 L (4.5-6.0) x10^6/uL Hgb 13.3 L (14.0-18.0) g/dL Hct 39.0 L (40.0-52.0) % MCV 95.6 H (78.0-93.0) fL MCH 32.6 H (26.0-32.0) pg MCHC 34.1 (32.0-36.0) g/dL RDW Coeff of Kala 13.1 (10.0-15.0) % Plt Count 104 L (130-400) x10^3/uL Med Orders - Current: Current Medications Aspirin (Aspirin 325 Mg Tab.Ec #Own Med#) 325 mg PO DAILY PRN PRN Reason: Pain Budesonide (Budesonide 0.5 Mg/2 Ml Neb Susp #Own Med#) 1 mg INH BIDRT [facility] Carbidopa/Levodopa (Carbidopa/Levodopa 25-100 Mg Tab #Own Med#) 1 tab PO TID [facility] Cholecalciferol (Cholecalciferol (Vitamin D3) 25 Mcg Tab) 25 mcg PO DAILY [facility] Donepezil HCl (Donepezil 10 Mg Tab #Own Med#) 10 mg PO BEDTIME [facility] Enoxaparin Sodium (Enoxaparin 40 Mg/0.4 Ml SyringeOwn Med) 40 mg SUBCUT DAILY@1200 [facility] Furosemide (Furosemide 20 Mg Tab #Own Med#) 20 mg PO DAILY [facility] Multivitamins/Minerals (Multivitamins With Iron/Calcium/Folic Acid/Minerals Tab#Own Med#) 1 tab PO DAILY [facility] Sodium Chloride (Sodium Chloride 0.9% 10 Ml Syringe) 10 ml FLUSH ASDIRECTED PRN PRN Reason: Keep Vein Open Discontinued Medications Enoxaparin Sodium (Enoxaparin 40 Mg/0.4 Ml Syringe) 40 mg SUBCUT DAILY@1200 [facility] Sodium Chloride (Sodium Chloride 0.9% 10 Ml Syringe) 10 ml FLUSH ASDIRECTED PRN PRN Reason: Keep Vein Open - Patient Data Lab Results Last 24 hrs: Laboratory Results - last 24 hr 11/25/20 Range/Units 06:35 WBC 5.9 (4.0-10.0) x10^3/uL RBC 4.08 L (4.5-6.0) x10^6/uL Hgb 13.3 L (14.0-18.0) g/dL Hct 39.0 L (40.0-52.0) % MCV 95.6 H (78.0-93.0) fL MCH 32.6 H (26.0-32.0) pg MCHC 34.1 (32.0-36.0) g/dL RDW Coeff of Kala 13.1 (10.0-15.0) % Plt Count 104 L (130-400) x10^3/uL Result Diagrams: 11/25/20 06:35 Sepsis Event Note - Evaluation Sepsis Screening Result: No Definite Risk - Focused Exam Vital Signs: Vital Signs Temp Pulse Resp BP Pulse Ox 11/25/20 06:00 97.7 F 70 20 110/50 L 97 - Problem List & Annotations (1) COPD (chronic obstructive pulmonary disease) SNOMED Code(s): 32711458 Code(s): J44.9 - CHRONIC OBSTRUCTIVE PULMONARY DISEASE, UNSPECIFIED Status: Acute Current Visit: Yes (2) Weakness SNOMED Code(s): 21789797 Code(s): R53.1 - WEAKNESS Status: Acute Current Visit: No Annotation/Comment:: Weakness generalized due to deconditioning age as well as parkinsonian disease. Unable to care for himself for ADLs at home. Social work to work with the patient on placement at the jail. (3) Parkinson disease SNOMED Code(s): 75948395 Code(s): G20 - PARKINSON'S DISEASE Status: Acute Current Visit: No Annotation/Comment:: Stable at baseline. Continue home medications. - Problem List Review Problem List Initiated/Reviewed/Updated: Yes - My Orders Last 24 Hours: My Active Orders 11/24/20 Dinner Regular Diet [DIET] 11/24/20 19:26 RT Aerosol Therapy [RC] Aspirin [Ecotrin] 325 mg PO DAILY PRN Sodium Chloride 0.9% [Saline Flush] 10 ml FLUSH ASDIRECTED PRN 11/24/20 19:26 Patient Status [ADT] Routine Up With Assistance [RC] VTE/DVT Education [RC] .PRN Vital Signs [RC] Consult to Case Management/Home Health Lvn [CONS] Routine Consult to Physical Therapy [PT Evaluation and Treatment] [CONS] Routine OT Evaluation and Treatment [CONS] Routine Blood Culture x2 Reflex Set [OM.PC] Stat Peripheral IV Insertion Adult [OM.PC] Routine Code Status [Resuscitation Status] Routine 11/24/20 20:00 Budesonide [Pulmicort] 1 mg INH BIDRT Carbidopa/Levodopa [Sinemet 25-100 mg] 1 tab PO TID Donepezil [Aricept] 10 mg PO BEDTIME 11/25/20 08:00 Cholecalciferol (Vitamin D3) [Vitamin D3] 25 mcg PO DAILY Furosemide [Lasix] 20 mg PO DAILY Multivitamins w-Iron/Ca/FA/Min [Thera M Plus] 1 tab PO DAILY 11/25/20 12:00 Enoxaparin [Lovenox] 40 mg SUBCUT DAILY@1200 11/26/20 07:00 CBC W/O DIFF,HEMOGRAM [HEME] Q3D 11/28/20 07:00 CBC W/O DIFF,HEMOGRAM [HEME] Q3D 11/29/20 07:00 CBC W/O DIFF,HEMOGRAM [HEME] Q3D 12/01/20 07:00 CBC W/O DIFF,HEMOGRAM [HEME] Q3D 12/02/20 07:00 CBC W/O DIFF,HEMOGRAM [HEME] Q3D 12/04/20 07:00 CBC W/O DIFF,HEMOGRAM [HEME] Q3D 12/05/20 07:00 CBC W/O DIFF,HEMOGRAM [HEME] Q3D 12/07/20 07:00 CBC W/O DIFF,HEMOGRAM [HEME] Q3D 12/08/20 07:00 CBC W/O DIFF,HEMOGRAM [HEME] Q3D 12/10/20 07:00 CBC W/O DIFF,HEMOGRAM [HEME] Q3D 12/11/20 07:00 CBC W/O DIFF,HEMOGRAM [HEME] Q3D 12/13/20 07:00 CBC W/O DIFF,HEMOGRAM [HEME] Q3D - Assessment Assessment:: UPdating his problem list.
[2020-11-25] MEDS ORDERED: Enoxaparin 40 MG/0.4 ML Syringe SUBCUT SCH (12:00)
[2020-11-25] MEDS: LEVODOPA PO SCH ×2 (12:29→21:48)
[2020-11-25] MEDS: CARBIDOPA PO SCH ×2 (12:29→21:48)
[2020-11-25] MEDS: Furosemide 20 MG Tab #OWN MED# PO SCH (12:30)
[2020-11-25] MEDS: BUDESONIDE 0.5 MG/2 ML INH SCH ×2 (12:31→21:50)
[2020-11-25] MEDS: FOLIC ACID PO SCH (12:33)
[2020-11-25] MEDS: MINERALS PO SCH (12:33)
[2020-11-25] MEDS: MULTIVITAMINS WITH IRON PO SCH (12:33)
[2020-11-25] MEDS: CALCIUM PO SCH (12:33)
[2020-11-25] MEDS: Cholecalciferol (Vitamin D3) 25 MCG Tab PO SCH (12:34)
[2020-11-25] MEDS: ENOXAPARIN 40 MG/0.4 ML SUBCUT SCH (12:35)
[2020-11-25] MEDS: DONEPEZIL 10 MG PO SCH (21:49)
[2020-11-26] MEDS: BUDESONIDE 0.5 MG/2 ML INH SCH ×2 (07:10→19:48)
[2020-11-26] MEDS: LEVODOPA PO SCH ×3 (08:37→19:48)
[2020-11-26] MEDS: CARBIDOPA PO SCH ×3 (08:37→19:48)
[2020-11-26] MEDS: Furosemide 20 MG Tab #OWN MED# PO SCH (08:38)
[2020-11-26] MEDS: Cholecalciferol (Vitamin D3) 25 MCG Tab PO SCH (08:38)
[2020-11-26] MEDS: CALCIUM PO SCH (08:41)
[2020-11-26] MEDS: FOLIC ACID PO SCH (08:41)
[2020-11-26] MEDS: MINERALS PO SCH (08:41)
[2020-11-26] MEDS: MULTIVITAMINS WITH IRON PO SCH (08:41)
[2020-11-26] MEDS: ENOXAPARIN 40 MG/0.4 ML SUBCUT SCH (11:50)
--- NOTE | 2020-11-26 16:58 | PCM.SN.2 ---
- Free Text/Narrative Note: Patient has been complaining of bilateral cerumen impaction of his ears. I did evaluate his ear canals and there is a moderate to large amount of thick dark brown cerumen bilaterally. No erythema induration or swelling. We will start him on Debrox 5 drops to bilateral ears once a day for the next 5 days then irrigate. Assessment bilateral cerumen impaction. Plan as above.
[2020-11-26] MEDS ORDERED: Carbamide Peroxide 6.5% Otic Soln 15 ML Bottle EARBOTH SCH (17:00)
[2020-11-26] MEDS: Carbamide Peroxide 6.5% Otic Soln 15 ML Bottle EARBOTH SCH (19:49)
[2020-11-26] MEDS: DONEPEZIL 10 MG PO SCH (19:50)
[2020-11-27] MEDS: BUDESONIDE 0.5 MG/2 ML INH SCH (07:28)
[2020-11-27] MEDS: LEVODOPA PO SCH ×3 (08:57→20:31)
[2020-11-27] MEDS: Furosemide 20 MG Tab #OWN MED# PO SCH (08:57)
[2020-11-27] MEDS: Cholecalciferol (Vitamin D3) 25 MCG Tab PO SCH (08:57)
[2020-11-27] MEDS: CARBIDOPA PO SCH ×3 (08:57→20:31)
[2020-11-27] MEDS: FOLIC ACID PO SCH (10:13)
[2020-11-27] MEDS: CALCIUM PO SCH (10:13)
[2020-11-27] MEDS: MINERALS PO SCH (10:13)
[2020-11-27] MEDS: MULTIVITAMINS WITH IRON PO SCH (10:13)
[2020-11-27] MEDS: ENOXAPARIN 40 MG/0.4 ML SUBCUT SCH (11:52)
[2020-11-27] MEDS: Multivitamins with Iron/Calcium/Folic Acid/Minerals Tab PO SCH (11:53)
[2020-11-27] MEDS: Carbamide Peroxide 6.5% Otic Soln 15 ML Bottle EARBOTH SCH (20:30)
[2020-11-27] MEDS: DONEPEZIL 10 MG PO SCH (20:30)
[2020-11-27] MEDS: PULMICORT FLEXHALER 180 MCG INH SCH (20:31)
[2020-11-28] MEDS: Furosemide 20 MG Tab #OWN MED# PO SCH (07:32)
[2020-11-28] MEDS: Cholecalciferol (Vitamin D3) 25 MCG Tab PO SCH (07:32)
[2020-11-28] MEDS: Multivitamins with Iron/Calcium/Folic Acid/Minerals Tab PO SCH (07:32)
[2020-11-28] MEDS: CARBIDOPA PO SCH ×3 (07:32→19:37)
[2020-11-28] MEDS: LEVODOPA PO SCH ×3 (07:32→19:37)
[2020-11-28] MEDS: PULMICORT FLEXHALER 180 MCG INH SCH ×2 (07:33→19:36)
--- NOTE | 2020-11-28 07:43 | PCM.PN ---
- General Info Date of Service: 11/28/20 Admission Dx/Problem (Free Text): Patient was admitted for weakness. He has parkinsons and was living home alone. He was admitted to [facility] for jail placement. He has been doing well. He is getting physical therapy and doing relatively well. He desired [place] placement to be close to family. Functional Status: Reports: Tolerating Diet, Ambulating. Denies: New Symptoms - Review of Systems General: Reports: No Symptoms HEENT: Reports: No Symptoms Pulmonary: Reports: No Symptoms Cardiovascular: Reports: No Symptoms Gastrointestinal: Reports: No Symptoms Genitourinary: Reports: No Symptoms Musculoskeletal: Reports: No Symptoms Neurological: Reports: Tremors, Difficulty Walking, Weakness - Patient Data Vitals - Most Recent: Last Vital Signs Temp 35.7 C L 11/28/20 06:00 Pulse 99 11/28/20 06:00 Resp 16 11/28/20 06:00 BP 148/67 H 11/28/20 06:00 Pulse Ox 94 L 11/28/20 06:00 Weight - Most Recent: 75.75 kg Med Orders - Current: Current Medications Aspirin (Aspirin 325 Mg Tab.Ec) 325 mg PO DAILY PRN PRN Reason: Pain Carbamide Perox/Anhydrous Glycerin (Carbamide Peroxide 6.5% Otic Soln 15 Ml Bottle) 0 ml EARBOTH DAILY@1999 [facility] Stop: 11/30/20 20:01 Last Admin: 11/27/20 20:30 Dose: 1 drop Documented by: Carbidopa/Levodopa (Carbidopa/Levodopa 25-100 Mg Tab #Own Med#) 1 tab PO TID [facility] Last Admin: 11/27/20 20:31 Dose: 1 tab Documented by: Cholecalciferol (Cholecalciferol (Vitamin D3) 25 Mcg Tab) 25 mcg PO DAILY [facility] Last Admin: 11/27/20 08:57 Dose: 25 mcg Documented by: Donepezil HCl (Donepezil 10 Mg Tab #Own Med#) 10 mg PO BEDTIME [facility] Last Admin: 11/27/20 20:30 Dose: 10 mg Documented by: Enoxaparin Sodium (Enoxaparin 40 Mg/0.4 Ml SyringeOwn Med) 40 mg SUBCUT DAILY@1200 [facility] Last Admin: 11/27/20 11:52 Dose: 40 mg Documented by: Furosemide (Furosemide 20 Mg Tab #Own Med#) 20 mg PO DAILY [facility] Last Admin: 11/27/20 08:57 Dose: 20 mg Documented by: Multivitamins/Minerals (Multivitamins With Iron/Calcium/Folic Acid/Minerals Tab) 1 tab PO DAILY [facility] Last Admin: 11/27/20 11:53 Dose: 1 tab Documented by: Patient's Own Medication Pulmicort Flexhaler 180 Mcg 0 each INH BID [facility] Last Admin: 11/27/20 20:31 Dose: 1 each Documented by: Sodium Chloride (Sodium Chloride 0.9% 10 Ml Syringe) 10 ml FLUSH ASDIRECTED PRN PRN Reason: Keep Vein Open Discontinued Medications Aspirin (Aspirin 325 Mg Tab.Ec #Own Med#) 325 mg PO DAILY PRN PRN Reason: Pain Last Admin: 11/25/20 22:38 Dose: 325 mg Documented by: Budesonide (Budesonide 0.5 Mg/2 Ml Neb Susp #Own Med#) 1 mg INH BIDRT [facility] Last Admin: 11/27/20 07:28 Dose: 1 mg Documented by: Carbamide Perox/Anhydrous Glycerin (Carbamide Peroxide 6.5% Otic Soln 15 Ml Bottle) 0 ml EARBOTH DAILY [facility] Stop: 11/30/20 08:01 Last Admin: 11/26/20 17:55 Dose: Not Given Documented by: Enoxaparin Sodium (Enoxaparin 40 Mg/0.4 Ml Syringe) 40 mg SUBCUT DAILY@1200 [facility] Multivitamins/Minerals (Multivitamins With Iron/Calcium/Folic Acid/Minerals Tab#Own Med#) 1 tab PO DAILY [facility] Last Admin: 11/27/20 10:13 Dose: Not Given Documented by: Sodium Chloride (Sodium Chloride 0.9% 10 Ml Syringe) 10 ml FLUSH ASDIRECTED PRN PRN Reason: Keep Vein Open - Exam General: Alert, Cooperative HEENT: Pupils Equal Neck: Supple Lungs: Clear to Auscultation, Normal Respiratory Effort Cardiovascular: Regular Rhythm GI/Abdominal Exam: Normal Bowel Sounds - Patient Data Result Diagrams: 11/26/20 06:38 Sepsis Event Note - Evaluation Sepsis Screening Result: No Definite Risk - Focused Exam Vital Signs: Vital Signs Temp Pulse Resp BP Pulse Ox 11/28/20 06:00 35.7 C L 99 16 148/67 H 94 L - Problem List & Annotations (1) Parkinson disease SNOMED Code(s): 93432251 Code(s): G20 - PARKINSON'S DISEASE Status: Acute Current Visit: No Annotation/Comment:: 11/28/2020 continues to do well. Tolerating physical therapy. continue meds Stable at baseline. Continue home medications. (2) Weakness SNOMED Code(s): 32958195 Code(s): R53.1 - WEAKNESS Status: Acute Current Visit: No Annotation/Comment:: therapy is helping. Daryn continue, can not continue alone at home. Has a jail placement on 12/02/20 Weakness generalized due to deconditioning age as well as parkinsonian disease. Unable to care for himself for ADLs at home. Social work to work with the patient on placement at the jail. - Problem List Review Problem List Initiated/Reviewed/Updated: Yes - My Orders Last 24 Hours: My Active Orders 11/27/20 20:00 Patient's Own Medication [Ptom] 0 each INH BID - Assessment Assessment:: 11/28/2020 doing well, await placement UPdating his problem list. - Plan Plan:: Continue cares, admit to jail next week
[2020-11-28] MEDS: ENOXAPARIN 40 MG/0.4 ML SUBCUT SCH (11:32)
[2020-11-28] MEDS: Carbamide Peroxide 6.5% Otic Soln 15 ML Bottle EARBOTH SCH (19:36)
[2020-11-28] MEDS: DONEPEZIL 10 MG PO SCH (19:37)
[2020-11-29] MEDS: Multivitamins with Iron/Calcium/Folic Acid/Minerals Tab PO SCH (07:30)
[2020-11-29] MEDS: CARBIDOPA PO SCH ×3 (07:31→20:00)
[2020-11-29] MEDS: Furosemide 20 MG Tab #OWN MED# PO SCH (07:31)
[2020-11-29] MEDS: PULMICORT FLEXHALER 180 MCG INH SCH ×2 (07:31→19:59)
[2020-11-29] MEDS: Cholecalciferol (Vitamin D3) 25 MCG Tab PO SCH (07:31)
[2020-11-29] MEDS: LEVODOPA PO SCH ×3 (07:31→20:00)
[2020-11-29] MEDS: ENOXAPARIN 40 MG/0.4 ML SUBCUT SCH (11:09)
[2020-11-29] MEDS: DONEPEZIL 10 MG PO SCH (20:00)
[2020-11-29] MEDS: Carbamide Peroxide 6.5% Otic Soln 15 ML Bottle EARBOTH SCH (20:00)
[2020-11-30] MEDS: Multivitamins with Iron/Calcium/Folic Acid/Minerals Tab PO SCH (08:00)
[2020-11-30] MEDS: Furosemide 20 MG Tab #OWN MED# PO SCH (08:00)
[2020-11-30] MEDS: Cholecalciferol (Vitamin D3) 25 MCG Tab PO SCH (08:00)
[2020-11-30] MEDS: LEVODOPA PO SCH ×3 (08:01→19:46)
[2020-11-30] MEDS: PULMICORT FLEXHALER 180 MCG INH SCH ×2 (08:01→19:48)
[2020-11-30] MEDS: CARBIDOPA PO SCH ×3 (08:01→19:46)
[2020-11-30] MEDS: Hypromellose 0.3% Ophth Soln 15 ML Bottle EYEBOTH PRN ×2 (12:09→19:47)
[2020-11-30] MEDS: ENOXAPARIN 40 MG/0.4 ML SUBCUT SCH (12:15)
[2020-11-30] MEDS: DONEPEZIL 10 MG PO SCH (19:47)
[2020-11-30] MEDS: Carbamide Peroxide 6.5% Otic Soln 15 ML Bottle EARBOTH SCH (19:48)
[2020-12-01] MEDS: LEVODOPA PO SCH ×3 (07:58→19:57)
[2020-12-01] MEDS: CARBIDOPA PO SCH ×3 (07:58→19:57)
[2020-12-01] MEDS: Multivitamins with Iron/Calcium/Folic Acid/Minerals Tab PO SCH (07:58)
[2020-12-01] MEDS: Cholecalciferol (Vitamin D3) 25 MCG Tab PO SCH (07:58)
[2020-12-01] MEDS: Hypromellose 0.3% Ophth Soln 15 ML Bottle EYEBOTH PRN (07:58)
[2020-12-01] MEDS: PULMICORT FLEXHALER 180 MCG INH SCH ×2 (07:59→19:53)
[2020-12-01] MEDS: Furosemide 20 MG Tab #OWN MED# PO SCH (08:01)
[2020-12-01] MEDS: ENOXAPARIN 40 MG/0.4 ML SUBCUT SCH (11:45)
[2020-12-01] MEDS ORDERED: Bisacodyl 5 MG Tab PO PRN (19:21)
[2020-12-01] MEDS: DONEPEZIL 10 MG PO SCH (19:56)
[2020-12-01] MEDS: Hypromellose 0.3% Ophth Soln 15 ML Bottle EYEBOTH SCH (19:57)
[2020-12-02] MEDS: PULMICORT FLEXHALER 180 MCG INH SCH ×2 (07:50→19:54)
[2020-12-02] MEDS: Furosemide 20 MG Tab #OWN MED# PO SCH (07:52)
[2020-12-02] MEDS: CARBIDOPA PO SCH ×3 (07:52→19:57)
[2020-12-02] MEDS: LEVODOPA PO SCH ×3 (07:52→19:57)
[2020-12-02] MEDS: Cholecalciferol (Vitamin D3) 25 MCG Tab PO SCH (07:53)
[2020-12-02] MEDS: Multivitamins with Iron/Calcium/Folic Acid/Minerals Tab PO SCH (07:53)
[2020-12-02] MEDS: Hypromellose 0.3% Ophth Soln 15 ML Bottle EYEBOTH SCH ×2 (07:53→19:55)
[2020-12-02] MEDS: ENOXAPARIN 40 MG/0.4 ML SUBCUT SCH (12:24)
[2020-12-02] MEDS: DONEPEZIL 10 MG PO SCH (19:57)
[2020-12-03] MEDS: Cholecalciferol (Vitamin D3) 25 MCG Tab PO SCH (07:42)
[2020-12-03] MEDS: Furosemide 20 MG Tab #OWN MED# PO SCH (07:43)
[2020-12-03] MEDS: LEVODOPA PO SCH ×3 (07:43→19:53)
[2020-12-03] MEDS: CARBIDOPA PO SCH ×3 (07:43→19:53)
[2020-12-03] MEDS: Multivitamins with Iron/Calcium/Folic Acid/Minerals Tab PO SCH (07:43)
[2020-12-03] MEDS: Hypromellose 0.3% Ophth Soln 15 ML Bottle EYEBOTH SCH ×2 (07:44→19:53)
[2020-12-03] MEDS: PULMICORT FLEXHALER 180 MCG INH SCH ×2 (07:45→19:52)
[2020-12-03] MEDS: ENOXAPARIN 40 MG/0.4 ML SUBCUT SCH (12:12)
[2020-12-03] MEDS: DONEPEZIL 10 MG PO SCH (19:53)
[2020-12-04] MEDS: Hypromellose 0.3% Ophth Soln 15 ML Bottle EYEBOTH SCH ×2 (10:25→19:36)
[2020-12-04] MEDS: PULMICORT FLEXHALER 180 MCG INH SCH ×2 (10:26→19:36)
[2020-12-04] MEDS: Cholecalciferol (Vitamin D3) 25 MCG Tab PO SCH (10:26)
[2020-12-04] MEDS: Multivitamins with Iron/Calcium/Folic Acid/Minerals Tab PO SCH (10:26)
[2020-12-04] MEDS: Furosemide 20 MG Tab #OWN MED# PO SCH (10:27)
[2020-12-04] MEDS: CARBIDOPA PO SCH ×3 (10:28→19:36)
[2020-12-04] MEDS: LEVODOPA PO SCH ×3 (10:28→19:36)
[2020-12-04] MEDS: ENOXAPARIN 40 MG/0.4 ML SUBCUT SCH (12:15)
[2020-12-04] MEDS: DONEPEZIL 10 MG PO SCH (19:35)
[2020-12-05] MEDS: Multivitamins with Iron/Calcium/Folic Acid/Minerals Tab PO SCH (07:50)
[2020-12-05] MEDS: Cholecalciferol (Vitamin D3) 25 MCG Tab PO SCH (07:51)
[2020-12-05] MEDS: PULMICORT FLEXHALER 180 MCG INH SCH ×2 (07:56→19:16)
[2020-12-05] MEDS: LEVODOPA PO SCH ×3 (07:57→19:56)
[2020-12-05] MEDS: Hypromellose 0.3% Ophth Soln 15 ML Bottle EYEBOTH SCH ×2 (07:57→19:15)
[2020-12-05] MEDS: Furosemide 20 MG Tab #OWN MED# PO SCH (07:57)
[2020-12-05] MEDS: CARBIDOPA PO SCH ×3 (07:57→19:56)
--- NOTE | 2020-12-05 12:18 | PN ---
Progress Note for CASPER CORLEY Date: 12/04/2020 Room #: VM.201 CHIEF COMPLAINT: Generalized weakness. SUBJECTIVE: 89-year-old male patient was originally admitted to [facility] on 11/22/2020 for generalized weakness. The patient was admitted to observation and was therefore switched to swing bed for further physical and occupational therapy. The patient has progressed well. The patient has remained hemodynamically stable. The patient has not had any issues with taking medications. The patient has not had any headaches, dizziness, or lightheadedness. The patient has not had any chest pain or palpitations. No leg swelling. The patient denies any shortness of breath or cough. The patient was recently seen in the clinic and treated with azithromycin for acute bronchitis. The patient has not had any fevers or chills. The patient states he feels he is doing well. PHYSICAL EXAMINATION: Vital Signs: Temperature 97.8, pulse 78, blood pressure 141/89, respiratory rate 16, oxygen saturation 95% on room air. Height 5 feet 6 inches, weight 167 pounds. Skin: Intact, warm, and dry. Respiratory: Lungs decreased throughout, otherwise clear. Cardiovascular: Regular rate and rhythm. No murmur. Abdomen: Soft, nontender. Bowel sounds are hypoactive x4. Extremities: No edema. Neurological: The patient is alert and appropriate. The patient is oriented to place and self, disoriented to time. No focal neurological deficits. General: The patient is alert. The patient is cooperative. The patient does not appear to be in any acute distress. LABORATORY STUDIES: CBC: White blood cell count 5.3, hemoglobin 14.4, hematocrit 42.5, platelets 117,000. ASSESSMENT: 1. Parkinson disease. 2. Weakness. PLAN: 89-year-old male patient with the above diagnoses, was admitted to observation unit on 11/22/2020 for weakness. Transitioned to swing bed for further physical and occupational therapy. The patient has progressed well. Physical Therapy and Occupational Therapy have signed off. The plan going forward, the patient is awaiting bed placement at a correction in [place], [place]. Continue medications the same without any changes. Activity per PT recommendation. The patient will remain on swing bed until discharge to correction in [place]. The patient's code status is CPR only. This patient was seen and examined by me as an [facility] provider. TB: 12/05/2020 11:29:17 MODL: 12/05/2020 12:13:37 /[id number]
[2020-12-05] MEDS: DONEPEZIL 10 MG PO SCH (19:15)
[2020-12-06] MEDS: PULMICORT FLEXHALER 180 MCG INH SCH ×2 (07:53→19:37)
[2020-12-06] MEDS: Furosemide 20 MG Tab #OWN MED# PO SCH (07:53)
[2020-12-06] MEDS: LEVODOPA PO SCH ×3 (07:54→19:38)
[2020-12-06] MEDS: Cholecalciferol (Vitamin D3) 25 MCG Tab PO SCH (07:54)
[2020-12-06] MEDS: CARBIDOPA PO SCH ×3 (07:54→19:38)
[2020-12-06] MEDS: Multivitamins with Iron/Calcium/Folic Acid/Minerals Tab PO SCH (07:54)
[2020-12-06] MEDS: Hypromellose 0.3% Ophth Soln 15 ML Bottle EYEBOTH SCH ×2 (08:01→19:38)
[2020-12-06] MEDS: DONEPEZIL 10 MG PO SCH (19:38)
[2020-12-07] MEDS: PULMICORT FLEXHALER 180 MCG INH SCH ×2 (07:38→19:26)
[2020-12-07] MEDS: Hypromellose 0.3% Ophth Soln 15 ML Bottle EYEBOTH SCH ×2 (07:38→19:28)
[2020-12-07] MEDS: CARBIDOPA PO SCH ×3 (07:39→19:28)
[2020-12-07] MEDS: LEVODOPA PO SCH ×3 (07:39→19:28)
[2020-12-07] MEDS: Multivitamins with Iron/Calcium/Folic Acid/Minerals Tab PO SCH (07:39)
[2020-12-07] MEDS: Furosemide 20 MG Tab #OWN MED# PO SCH (07:39)
[2020-12-07] MEDS: Cholecalciferol (Vitamin D3) 25 MCG Tab PO SCH (07:39)
[2020-12-07] MEDS: DONEPEZIL 10 MG PO SCH (19:28)
[2020-12-08] MEDS: Hypromellose 0.3% Ophth Soln 15 ML Bottle EYEBOTH SCH ×2 (07:45→20:33)
[2020-12-08] MEDS: PULMICORT FLEXHALER 180 MCG INH SCH ×2 (07:45→20:33)
[2020-12-08] MEDS: Furosemide 20 MG Tab #OWN MED# PO SCH (07:46)
[2020-12-08] MEDS: CARBIDOPA PO SCH ×3 (07:46→20:34)
[2020-12-08] MEDS: LEVODOPA PO SCH ×3 (07:46→20:34)
[2020-12-08] MEDS: Multivitamins with Iron/Calcium/Folic Acid/Minerals Tab PO SCH (07:46)
[2020-12-08] MEDS: Cholecalciferol (Vitamin D3) 25 MCG Tab PO SCH (07:49)
[2020-12-08] MEDS: DONEPEZIL 10 MG PO SCH (20:32)
[2020-12-08] MEDS: Acetaminophen 325 MG Tab PO PRN (20:33)
[2020-12-09] MEDS: PULMICORT FLEXHALER 180 MCG INH SCH ×2 (07:57→21:12)
[2020-12-09] MEDS: Furosemide 20 MG Tab #OWN MED# PO SCH (07:58)
[2020-12-09] MEDS: LEVODOPA PO SCH ×3 (07:58→21:12)
[2020-12-09] MEDS: CARBIDOPA PO SCH ×3 (07:58→21:12)
[2020-12-09] MEDS: Cholecalciferol (Vitamin D3) 25 MCG Tab PO SCH (07:59)
[2020-12-09] MEDS: Multivitamins with Iron/Calcium/Folic Acid/Minerals Tab PO SCH (07:59)
[2020-12-09] MEDS: Hypromellose 0.3% Ophth Soln 15 ML Bottle EYEBOTH SCH ×2 (08:00→21:12)
[2020-12-09] MEDS: Lidocaine 4% 1 each Patch TOP SCH (08:00)
[2020-12-09] MEDS: DONEPEZIL 10 MG PO SCH (21:12)
[2020-12-10] MEDS: PULMICORT FLEXHALER 180 MCG INH SCH ×2 (08:00→19:57)
[2020-12-10] MEDS: CARBIDOPA PO SCH ×3 (08:01→19:56)
[2020-12-10] MEDS: Multivitamins with Iron/Calcium/Folic Acid/Minerals Tab PO SCH (08:01)
[2020-12-10] MEDS: LEVODOPA PO SCH ×3 (08:01→19:56)
[2020-12-10] MEDS: Furosemide 20 MG Tab #OWN MED# PO SCH (08:01)
[2020-12-10] MEDS: Cholecalciferol (Vitamin D3) 25 MCG Tab PO SCH (08:01)
[2020-12-10] MEDS: Hypromellose 0.3% Ophth Soln 15 ML Bottle EYEBOTH SCH ×2 (08:01→19:57)
[2020-12-10] MEDS: Lidocaine 4% 1 each Patch TOP SCH (08:02)
[2020-12-10] MEDS: Acetaminophen 325 MG Tab PO PRN (19:55)
[2020-12-10] MEDS: DONEPEZIL 10 MG PO SCH (19:57)
[2020-12-11] MEDS ORDERED: Levothyroxine 50 MCG Tab PO SCH (07:00)
[2020-12-11] MEDS: Cholecalciferol (Vitamin D3) 25 MCG Tab PO SCH (08:11)
[2020-12-11] MEDS: Multivitamins with Iron/Calcium/Folic Acid/Minerals Tab PO SCH (08:12)
[2020-12-11] MEDS: LEVODOPA PO SCH ×3 (08:13→19:35)
[2020-12-11] MEDS: CARBIDOPA PO SCH ×3 (08:13→19:35)
[2020-12-11] MEDS: Furosemide 20 MG Tab #OWN MED# PO SCH (08:13)
[2020-12-11] MEDS: Hypromellose 0.3% Ophth Soln 15 ML Bottle EYEBOTH SCH ×2 (08:18→19:34)
[2020-12-11] MEDS: PULMICORT FLEXHALER 180 MCG INH SCH ×2 (08:22→19:34)
[2020-12-11] MEDS: DONEPEZIL 10 MG PO SCH (19:35)
[2020-12-12 08:37] LABS: CHLORIDE,CL 103 mmol/L (98-107); SODIUM,NA 143 mmol/L (136-145)
[2020-12-12 08:38] LABS: ANION GAP 10.4 mmol/L (5-15)
[2020-12-12] MEDS: Multivitamins with Iron/Calcium/Folic Acid/Minerals Tab PO SCH (09:19)
[2020-12-12] MEDS: Cholecalciferol (Vitamin D3) 25 MCG Tab PO SCH (09:19)
[2020-12-12] MEDS: Furosemide 20 MG Tab #OWN MED# PO SCH (09:20)
[2020-12-12] MEDS: LEVODOPA PO SCH ×3 (09:21→20:26)
[2020-12-12] MEDS: CARBIDOPA PO SCH ×3 (09:21→20:26)
[2020-12-12] MEDS: Hypromellose 0.3% Ophth Soln 15 ML Bottle EYEBOTH SCH ×2 (09:22→20:26)
[2020-12-12] MEDS: PULMICORT FLEXHALER 180 MCG INH SCH ×2 (09:22→20:25)
[2020-12-12] MEDS: DONEPEZIL 10 MG PO SCH (20:25)
[2020-12-13] MEDS: Cholecalciferol (Vitamin D3) 25 MCG Tab PO SCH (09:33)
[2020-12-13] MEDS: Multivitamins with Iron/Calcium/Folic Acid/Minerals Tab PO SCH (09:34)
[2020-12-13] MEDS: Furosemide 20 MG Tab #OWN MED# PO SCH (09:35)
[2020-12-13] MEDS: PULMICORT FLEXHALER 180 MCG INH SCH ×2 (09:35→20:35)
[2020-12-13] MEDS: LEVODOPA PO SCH ×3 (09:36→20:37)
[2020-12-13] MEDS: Hypromellose 0.3% Ophth Soln 15 ML Bottle EYEBOTH SCH ×2 (09:36→20:35)
[2020-12-13] MEDS: CARBIDOPA PO SCH ×3 (09:36→20:37)
[2020-12-13] MEDS: DONEPEZIL 10 MG PO SCH (20:37)
[2020-12-14] MEDS: Hypromellose 0.3% Ophth Soln 15 ML Bottle EYEBOTH SCH ×2 (08:33→19:27)
[2020-12-14] MEDS: LEVODOPA PO SCH ×3 (08:33→19:27)
[2020-12-14] MEDS: CARBIDOPA PO SCH ×3 (08:33→19:27)
[2020-12-14] MEDS: Furosemide 20 MG Tab #OWN MED# PO SCH (08:33)
[2020-12-14] MEDS: Acetaminophen 325 MG Tab PO PRN ×2 (08:34→19:27)
[2020-12-14] MEDS: Cholecalciferol (Vitamin D3) 25 MCG Tab PO SCH (08:34)
[2020-12-14] MEDS: Multivitamins with Iron/Calcium/Folic Acid/Minerals Tab PO SCH (08:34)
[2020-12-14] MEDS: PULMICORT FLEXHALER 180 MCG INH SCH ×2 (08:35→19:27)
[2020-12-14] MEDS: DONEPEZIL 10 MG PO SCH (19:27)
[2020-12-15] MEDS: LEVODOPA PO SCH ×3 (08:39→19:40)
[2020-12-15] MEDS: PULMICORT FLEXHALER 180 MCG INH SCH ×2 (08:39→19:40)
[2020-12-15] MEDS: CARBIDOPA PO SCH ×3 (08:39→19:40)
[2020-12-15] MEDS: Hypromellose 0.3% Ophth Soln 15 ML Bottle EYEBOTH SCH ×2 (08:40→19:39)
[2020-12-15] MEDS: Furosemide 20 MG Tab #OWN MED# PO SCH (08:40)
[2020-12-15] MEDS: Cholecalciferol (Vitamin D3) 25 MCG Tab PO SCH (08:41)
[2020-12-15] MEDS: Multivitamins with Iron/Calcium/Folic Acid/Minerals Tab PO SCH (08:41)
[2020-12-15] MEDS: Acetaminophen 325 MG Tab PO PRN (08:41)
[2020-12-15] MEDS: DONEPEZIL 10 MG PO SCH (19:39)
[2020-12-16] MEDS: Furosemide 20 MG Tab #OWN MED# PO SCH (07:50)
[2020-12-16] MEDS: Cholecalciferol (Vitamin D3) 25 MCG Tab PO SCH (07:51)
[2020-12-16] MEDS: LEVODOPA PO SCH ×3 (07:51→20:30)
[2020-12-16] MEDS: CARBIDOPA PO SCH ×3 (07:51→20:30)
[2020-12-16] MEDS: Multivitamins with Iron/Calcium/Folic Acid/Minerals Tab PO SCH (07:51)
[2020-12-16] MEDS: PULMICORT FLEXHALER 180 MCG INH SCH ×2 (07:51→20:30)
[2020-12-16] MEDS: Hypromellose 0.3% Ophth Soln 15 ML Bottle EYEBOTH SCH ×2 (07:52→20:31)
[2020-12-16] MEDS: DONEPEZIL 10 MG PO SCH (20:30)
[2020-12-17] MEDS: LEVODOPA PO SCH ×3 (08:38→19:45)
[2020-12-17] MEDS: PULMICORT FLEXHALER 180 MCG INH SCH ×2 (08:38→19:43)
[2020-12-17] MEDS: Hypromellose 0.3% Ophth Soln 15 ML Bottle EYEBOTH SCH ×2 (08:38→19:45)
[2020-12-17] MEDS: Furosemide 20 MG Tab #OWN MED# PO SCH (08:38)
[2020-12-17] MEDS: CARBIDOPA PO SCH ×3 (08:38→19:45)
[2020-12-17] MEDS: Multivitamins with Iron/Calcium/Folic Acid/Minerals Tab PO SCH (08:39)
[2020-12-17] MEDS: Cholecalciferol (Vitamin D3) 25 MCG Tab PO SCH (08:39)
[2020-12-17] MEDS: DONEPEZIL 10 MG PO SCH (19:45)
[2020-12-18] MEDS: Hypromellose 0.3% Ophth Soln 15 ML Bottle EYEBOTH SCH ×2 (07:43→19:34)
[2020-12-18] MEDS: Furosemide 20 MG Tab #OWN MED# PO SCH (07:43)
[2020-12-18] MEDS: LEVODOPA PO SCH ×3 (07:44→19:36)
[2020-12-18] MEDS: PULMICORT FLEXHALER 180 MCG INH SCH ×2 (07:44→19:35)
[2020-12-18] MEDS: CARBIDOPA PO SCH ×3 (07:44→19:36)
[2020-12-18] MEDS: Cholecalciferol (Vitamin D3) 25 MCG Tab PO SCH (07:44)
[2020-12-18] MEDS: Multivitamins with Iron/Calcium/Folic Acid/Minerals Tab PO SCH (07:44)
[2020-12-18] MEDS: DONEPEZIL 10 MG PO SCH (19:35)
[2020-12-18] MEDS: Acetaminophen 325 MG Tab PO PRN (19:35)
[2020-12-19] MEDS: PULMICORT FLEXHALER 180 MCG INH SCH ×2 (08:04→19:30)
[2020-12-19] MEDS: Hypromellose 0.3% Ophth Soln 15 ML Bottle EYEBOTH SCH ×2 (08:04→19:30)
[2020-12-19] MEDS: Furosemide 20 MG Tab #OWN MED# PO SCH (08:04)
[2020-12-19] MEDS: CARBIDOPA PO SCH ×3 (08:05→19:31)
[2020-12-19] MEDS: LEVODOPA PO SCH ×3 (08:05→19:31)
[2020-12-19] MEDS: Cholecalciferol (Vitamin D3) 25 MCG Tab PO SCH (08:05)
[2020-12-19] MEDS: Multivitamins with Iron/Calcium/Folic Acid/Minerals Tab PO SCH (08:05)
[2020-12-19] MEDS: DONEPEZIL 10 MG PO SCH (19:32)
[2020-12-20] MEDS: PULMICORT FLEXHALER 180 MCG INH SCH ×2 (07:48→19:41)
[2020-12-20] MEDS: Hypromellose 0.3% Ophth Soln 15 ML Bottle EYEBOTH SCH ×2 (07:49→19:41)
[2020-12-20] MEDS: Furosemide 20 MG Tab #OWN MED# PO SCH (07:49)
[2020-12-20] MEDS: CARBIDOPA PO SCH ×3 (07:49→19:41)
[2020-12-20] MEDS: Multivitamins with Iron/Calcium/Folic Acid/Minerals Tab PO SCH (07:49)
[2020-12-20] MEDS: Cholecalciferol (Vitamin D3) 25 MCG Tab PO SCH (07:49)
[2020-12-20] MEDS: LEVODOPA PO SCH ×3 (07:49→19:41)
[2020-12-20] MEDS: DONEPEZIL 10 MG PO SCH (19:40)
[2020-12-21] MEDS: PULMICORT FLEXHALER 180 MCG INH SCH ×2 (07:56→20:19)
[2020-12-21] MEDS: CARBIDOPA PO SCH ×3 (07:57→20:19)
[2020-12-21] MEDS: Aspirin 325 MG Tab.EC PO PRN (07:57)
[2020-12-21] MEDS: Multivitamins with Iron/Calcium/Folic Acid/Minerals Tab PO SCH (07:57)
[2020-12-21] MEDS: Cholecalciferol (Vitamin D3) 25 MCG Tab PO SCH (07:57)
[2020-12-21] MEDS: Furosemide 20 MG Tab #OWN MED# PO SCH (07:57)
[2020-12-21] MEDS: LEVODOPA PO SCH ×3 (07:57→20:19)
[2020-12-21] MEDS: Hypromellose 0.3% Ophth Soln 15 ML Bottle EYEBOTH SCH ×2 (07:59→20:20)
[2020-12-21] MEDS: DONEPEZIL 10 MG PO SCH (20:19)
[2020-12-22] MEDS: PULMICORT FLEXHALER 180 MCG INH SCH ×2 (07:50→20:29)
[2020-12-22] MEDS: LEVODOPA PO SCH ×3 (07:51→20:29)
[2020-12-22] MEDS: CARBIDOPA PO SCH ×3 (07:51→20:29)
[2020-12-22] MEDS: Hypromellose 0.3% Ophth Soln 15 ML Bottle EYEBOTH SCH ×2 (07:51→20:29)
[2020-12-22] MEDS: Multivitamins with Iron/Calcium/Folic Acid/Minerals Tab PO SCH (07:52)
[2020-12-22] MEDS: Cholecalciferol (Vitamin D3) 25 MCG Tab PO SCH (07:52)
[2020-12-22] MEDS: Furosemide 20 MG Tab #OWN MED# PO SCH (07:52)
[2020-12-22] MEDS: DONEPEZIL 10 MG PO SCH (20:29)
[2020-12-23] MEDS: CARBIDOPA PO SCH ×3 (07:28→19:33)
[2020-12-23] MEDS: Hypromellose 0.3% Ophth Soln 15 ML Bottle EYEBOTH SCH ×2 (07:28→19:34)
[2020-12-23] MEDS: LEVODOPA PO SCH ×3 (07:28→19:33)
[2020-12-23] MEDS: Multivitamins with Iron/Calcium/Folic Acid/Minerals Tab PO SCH (07:29)
[2020-12-23] MEDS: Furosemide 20 MG Tab #OWN MED# PO SCH (07:29)
[2020-12-23] MEDS: PULMICORT FLEXHALER 180 MCG INH SCH ×2 (07:29→19:34)
[2020-12-23] MEDS: Cholecalciferol (Vitamin D3) 25 MCG Tab PO SCH (07:29)
[2020-12-23] MEDS: DONEPEZIL 10 MG PO SCH (19:34)
[2020-12-24] MEDS: PULMICORT FLEXHALER 180 MCG INH SCH ×2 (08:11→19:41)
[2020-12-24] MEDS: Acetaminophen 325 MG Tab PO PRN (08:12)
[2020-12-24] MEDS: Hypromellose 0.3% Ophth Soln 15 ML Bottle EYEBOTH SCH ×2 (08:12→19:42)
[2020-12-24] MEDS: Multivitamins with Iron/Calcium/Folic Acid/Minerals Tab PO SCH (08:12)
[2020-12-24] MEDS: CARBIDOPA PO SCH ×3 (08:13→19:41)
[2020-12-24] MEDS: LEVODOPA PO SCH ×3 (08:13→19:41)
[2020-12-24] MEDS: Cholecalciferol (Vitamin D3) 25 MCG Tab PO SCH (08:13)
[2020-12-24] MEDS: Furosemide 20 MG Tab #OWN MED# PO SCH (08:13)
[2020-12-24] MEDS: DONEPEZIL 10 MG PO SCH (19:42)
[2020-12-25] MEDS: CARBIDOPA PO SCH ×3 (07:37→20:24)
[2020-12-25] MEDS: LEVODOPA PO SCH ×3 (07:37→20:24)
[2020-12-25] MEDS: Furosemide 20 MG Tab #OWN MED# PO SCH (07:41)
[2020-12-25] MEDS: Hypromellose 0.3% Ophth Soln 15 ML Bottle EYEBOTH SCH ×2 (07:41→20:24)
[2020-12-25] MEDS: PULMICORT FLEXHALER 180 MCG INH SCH ×2 (07:41→20:24)
[2020-12-25] MEDS: Multivitamins with Iron/Calcium/Folic Acid/Minerals Tab PO SCH (07:42)
[2020-12-25] MEDS: Cholecalciferol (Vitamin D3) 25 MCG Tab PO SCH (07:42)
[2020-12-25] MEDS: Acetaminophen 325 MG Tab PO PRN (07:42)
[2020-12-25] MEDS: DONEPEZIL 10 MG PO SCH (20:24)
[2020-12-26] MEDS: Hypromellose 0.3% Ophth Soln 15 ML Bottle EYEBOTH SCH ×2 (08:55→20:04)
[2020-12-26] MEDS: Furosemide 20 MG Tab #OWN MED# PO SCH (08:55)
[2020-12-26] MEDS: LEVODOPA PO SCH ×3 (08:55→20:04)
[2020-12-26] MEDS: CARBIDOPA PO SCH ×3 (08:55→20:04)
[2020-12-26] MEDS: PULMICORT FLEXHALER 180 MCG INH SCH ×2 (08:56→20:04)
[2020-12-26] MEDS: Cholecalciferol (Vitamin D3) 25 MCG Tab PO SCH (08:57)
[2020-12-26] MEDS: Acetaminophen 325 MG Tab PO PRN ×2 (08:57→20:06)
[2020-12-26] MEDS: Multivitamins with Iron/Calcium/Folic Acid/Minerals Tab PO SCH (08:57)
[2020-12-26] MEDS: DONEPEZIL 10 MG PO SCH (20:04)
[2020-12-27] MEDS: CARBIDOPA PO SCH ×3 (08:54→20:12)
[2020-12-27] MEDS: Multivitamins with Iron/Calcium/Folic Acid/Minerals Tab PO SCH (08:54)
[2020-12-27] MEDS: LEVODOPA PO SCH ×3 (08:54→20:12)
[2020-12-27] MEDS: Cholecalciferol (Vitamin D3) 25 MCG Tab PO SCH (08:54)
[2020-12-27] MEDS: Furosemide 20 MG Tab #OWN MED# PO SCH (08:54)
[2020-12-27] MEDS: Hypromellose 0.3% Ophth Soln 15 ML Bottle EYEBOTH SCH ×2 (08:54→20:13)
[2020-12-27] MEDS: PULMICORT FLEXHALER 180 MCG INH SCH ×2 (08:55→20:11)
[2020-12-27] MEDS: Acetaminophen 325 MG Tab PO PRN (20:11)
[2020-12-27] MEDS: DONEPEZIL 10 MG PO SCH (20:12)
[2020-12-28] MEDS: Hypromellose 0.3% Ophth Soln 15 ML Bottle EYEBOTH SCH ×2 (09:08→20:38)
[2020-12-28] MEDS: Multivitamins with Iron/Calcium/Folic Acid/Minerals Tab PO SCH (09:08)
[2020-12-28] MEDS: PULMICORT FLEXHALER 180 MCG INH SCH ×2 (09:08→20:38)
[2020-12-28] MEDS: Furosemide 20 MG Tab #OWN MED# PO SCH (09:08)
[2020-12-28] MEDS: LEVODOPA PO SCH ×3 (09:08→20:39)
[2020-12-28] MEDS: CARBIDOPA PO SCH ×3 (09:08→20:39)
[2020-12-28] MEDS: Cholecalciferol (Vitamin D3) 25 MCG Tab PO SCH (09:08)
[2020-12-28] MEDS: DONEPEZIL 10 MG PO SCH (20:38)
[2020-12-29] MEDS: PULMICORT FLEXHALER 180 MCG INH SCH ×2 (07:36→19:50)
[2020-12-29] MEDS: Hypromellose 0.3% Ophth Soln 15 ML Bottle EYEBOTH SCH ×2 (07:36→19:50)
[2020-12-29] MEDS: Acetaminophen 325 MG Tab PO PRN ×2 (07:37→19:49)
[2020-12-29] MEDS: Furosemide 20 MG Tab #OWN MED# PO SCH (07:37)
[2020-12-29] MEDS: Cholecalciferol (Vitamin D3) 25 MCG Tab PO SCH (07:37)
[2020-12-29] MEDS: LEVODOPA PO SCH ×3 (07:37→19:51)
[2020-12-29] MEDS: CARBIDOPA PO SCH ×3 (07:37→19:51)
[2020-12-29] MEDS: Multivitamins with Iron/Calcium/Folic Acid/Minerals Tab PO SCH (07:38)
[2020-12-29 10:32] LABS: CHLORIDE,CL 105 mmol/L (98-107); SODIUM,NA 142 mmol/L (136-145)
[2020-12-29 10:33] LABS: ANION GAP 8.7 mmol/L (5-15)
--- NOTE | 2020-12-29 11:55 | CT ---
[id number] CT/CT Head WO IV EXAM: NONCONTRAST HEAD CT INDICATION: ALTERED MENTAL STATUS, WEAKNESS. COMPARISON: November 22, 2020. DISCUSSION: There is mild generalized atrophy. Mild multifocal white matter hypoattenuation is nonspecific, but generally ascribed to chronic small vessel ischemia. No mass effect or midline shift. No acute hemorrhage or extra-axial fluid collection. No acute territorial infarct is identified. Frothy secretions within the right sphenoid sinus. Mild scattered paranasal sinus mucosal thickening. IMPRESSION: 1. No acute findings. Mahesh Huston MD 12/29/20 [id number] Thank you for allowing us to participate in the care of your patient.
[2020-12-29] MEDS: DONEPEZIL 10 MG PO SCH (19:51)
[2020-12-30] MEDS: PULMICORT FLEXHALER 180 MCG INH SCH ×2 (07:59→19:26)
[2020-12-30] MEDS: Cholecalciferol (Vitamin D3) 25 MCG Tab PO SCH (08:00)
[2020-12-30] MEDS: Hypromellose 0.3% Ophth Soln 15 ML Bottle EYEBOTH SCH ×2 (08:00→19:25)
[2020-12-30] MEDS: Multivitamins with Iron/Calcium/Folic Acid/Minerals Tab PO SCH (08:00)
[2020-12-30] MEDS: CARBIDOPA PO SCH ×3 (08:00→19:26)
[2020-12-30] MEDS: Furosemide 20 MG Tab #OWN MED# PO SCH (08:00)
[2020-12-30] MEDS: LEVODOPA PO SCH ×3 (08:00→19:26)
--- NOTE | 2020-12-30 17:15 | PCM.SN.2 ---
- Free Text/Narrative Note: CT of Head and lab work results reviewed from 12/29. No red flags or suspicious findings. Will have nursing continue to monitor patient. CT negative. Labs acceptable. Time Documentation
[2020-12-30] MEDS: DONEPEZIL 10 MG PO SCH (19:26)
--- NOTE | 2020-12-31 07:56 | PCM.PN ---
- General Info Date of Service: 12/31/20 Admission Dx/Problem (Free Text): 1. Parkinson's Disease 2. CAD 3. COPD 4. Mixed Hyperlipidemia 5. HTN 6. Asthma 7. Osteoarthritis of the Right Knee 8. Cognitive Impairment 9. SCC of Left Ear 10. 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 He states he is doing ok. He is currently on self-pay swing bed awaiting a long term bed in [place]. No issues with eating or drinking. No issues with BM's or urination. No longer required physical therapy. He is up and independent in his room. Functional Status: Reports: Pain Controlled, Tolerating Diet, Ambulating, Urinating - Review of Systems General: Reports: No Symptoms Pulmonary: Reports: No Symptoms Cardiovascular: Reports: No Symptoms Gastrointestinal: Reports: No Symptoms Musculoskeletal: Reports: No Symptoms Skin: Reports: No Symptoms - Patient Data Vitals - Most Recent: Last Vital Signs Temp 97.5 F 12/31/20 05:44 Pulse 86 12/31/20 05:44 Resp 16 12/31/20 05:44 BP 136/90 12/31/20 05:44 Pulse Ox 95 12/31/20 05:44 Weight - Most Recent: 158 lb 2 oz I&O - Last 24 Hours: Intake & Output 12/30/20 12/31/20 12/31/20 22:59 06:59 14:59 Intake Total 540 Balance 540 Med Orders - Current: Current Medications Acetaminophen (Acetaminophen 325 Mg Tab) 650 mg PO Q4H PRN PRN Reason: Pain (mild 1-3) Last Admin: 12/29/20 19:49 Dose: 650 mg Documented by: Artificial Tears (Hypromellose 0.3% Ophth Soln 15 Ml Bottle) 0 ml EYEBOTH Q1H PRN PRN Reason: Dry Eyes Last Admin: 12/01/20 07:58 Dose: 1 drop Documented by: Artificial Tears (Hypromellose 0.3% Ophth Soln 15 Ml Bottle) 1 ml EYEBOTH BID ARLEEN Last Admin: 12/30/20 19:25 Dose: 1 drop Documented by: Aspirin (Aspirin 325 Mg Tab.Ec) 325 mg PO DAILY PRN PRN Reason: Pain Last Admin: 12/21/20 07:57 Dose: 325 mg Documented by: Bisacodyl (Bisacodyl 5 Mg Tab) 5 mg PO DAILY PRN PRN Reason: Constipation Last Admin: 12/02/20 19:56 Dose: 5 mg Documented by: Carbidopa/Levodopa (Carbidopa/Levodopa 25-100 Mg Tab #Own Med#) 1 tab PO TID [facility] Last Admin: 12/30/20 19:26 Dose: 1 tab Documented by: Cholecalciferol (Cholecalciferol (Vitamin D3) 25 Mcg Tab) 25 mcg PO DAILY [facility] Last Admin: 12/30/20 08:00 Dose: 25 mcg Documented by: Donepezil HCl (Donepezil 10 Mg Tab #Own Med#) 10 mg PO BEDTIME [facility] Last Admin: 12/30/20 19:26 Dose: 10 mg Documented by: Furosemide (Furosemide 20 Mg Tab #Own Med#) 20 mg PO DAILY [facility] Last Admin: 12/30/20 08:00 Dose: 20 mg Documented by: Multivitamins/Minerals (Multivitamins With Iron/Calcium/Folic Acid/Minerals Tab) 1 tab PO DAILY [facility] Last Admin: 12/30/20 08:00 Dose: 1 tab Documented by: Patient's Own Medication Pulmicort Flexhaler 180 Mcg 0 each INH BID [facility] Last Admin: 12/30/20 19:26 Dose: 1 each Documented by: Senna/Docusate Sodium (Docusate Sodium/Sennosides 50-8.6 Mg Tab) 1 tab PO BID [facility] Last Admin: 12/30/20 19:26 Dose: 1 tab Documented by: Sodium Chloride (Sodium Chloride 0.9% 10 Ml Syringe) 10 ml FLUSH ASDIRECTED PRN PRN Reason: Keep Vein Open Discontinued Medications Aspirin (Aspirin 325 Mg Tab.Ec #Own Med#) 325 mg PO DAILY PRN PRN Reason: Pain Last Admin: 11/25/20 22:38 Dose: 325 mg Documented by: Budesonide (Budesonide 0.5 Mg/2 Ml Neb Susp #Own Med#) 1 mg INH BIDRT [facility] Last Admin: 11/27/20 07:28 Dose: 1 mg Documented by: Carbamide Perox/Anhydrous Glycerin (Carbamide Peroxide 6.5% Otic Soln 15 Ml Bottle) 0 ml EARBOTH DAILY [facility] Stop: 11/30/20 08:01 Last Admin: 11/26/20 17:55 Dose: Not Given Documented by: Carbamide Perox/Anhydrous Glycerin (Carbamide Peroxide 6.5% Otic Soln 15 Ml B ottle) 0 ml EARBOTH DAILY@1999 [facility] Stop: 11/30/20 20:01 Last Admin: 11/30/20 19:48 Dose: 5 drop Documented by: Enoxaparin Sodium (Enoxaparin 40 Mg/0.4 Ml Syringe) 40 mg SUBCUT DAILY@1199 [facility] Enoxaparin Sodium (Enoxaparin 40 Mg/0.4 Ml SyringeOwn Med) 40 mg SUBCUT DAILY@1199 [facility] Stop: 12/04/20 13:00 Last Admin: 12/04/20 12:15 Dose: 40 mg Documented by: Influenza Virus Vaccine (Flu Vacc [id number](65yr Up)/Pf 240 Mcg/0.7 Ml Syringe) 240 mcg IM .ONCE ONE Stop: 12/30/20 12:01 Last Admin: 12/30/20 12:50 Dose: 240 mcg Documented by: Levothyroxine Sodium (Levothyroxine 50 Mcg Tab) 50 mcg PO ACBREAKFAST [facility] Last Admin: 12/11/20 06:08 Dose: 50 mcg Documented by: Lidocaine (Lidocaine 4% 1 Each Patch) 1 each TOP DAILY@08 [facility] Last Admin: 12/10/20 08:02 Dose: Not Given Documented by: Miscellaneous Information (Remove Patch) 1 ea TRDERM DAILY@1999 [facility] Last Admin: 12/09/20 21:13 Dose: 1 ea Documented by: Multivitamins/Minerals (Multivitamins With Iron/Calcium/Folic Acid/Minerals Tab#Own Med#) 1 tab PO DAILY [facility] Last Admin: 11/27/20 10:13 Dose: Not Given Documented by: Sodium Chloride (Sodium Chloride 0.9% 10 Ml Syringe) 10 ml FLUSH ASDIRECTED PRN PRN Reason: Keep Vein Open - Exam General: Alert, Cooperative, No Acute Distress Lungs: Clear to Auscultation, Normal Respiratory Effort, Decreased Breath Sounds Cardiovascular: Regular Rate, Regular Rhythm GI/Abdominal Exam: Normal Bowel Sounds, Soft, Non-Tender Extremities: No Pedal Edema Skin: Warm, Dry, Intact Neurological: No New Focal Deficit - Patient Data Result Diagrams: 12/29/20 10:12 12/29/20 10:12 Sepsis Event Note - Evaluation Sepsis Screening Result: No Definite Risk - Focused Exam Vital Signs: Vital Signs Temp Pulse Resp BP Pulse Ox 12/31/20 05:44 97.5 F 86 16 136/90 95 - Problem List & Annotations (1) Parkinson disease SNOMED Code(s): 48362104 Code(s): G20 - PARKINSON'S DISEASE Status: Chronic Priority: Medium Current Visit: Yes (2) COPD (chronic obstructive pulmonary disease) SNOMED Code(s): 69409714 Code(s): J44.9 - CHRONIC OBSTRUCTIVE PULMONARY DISEASE, UNSPECIFIED Status: Chronic Priority: Medium Current Visit: Yes Qualifiers: COPD type: unspecified COPD Qualified Code(s): J44.9 - Chronic obstructive pulmonary disease, unspecified (3) Coronary artery disease SNOMED Code(s): 84743586 Code(s): I25.10 - ATHSCL HEART DISEASE OF [place] CORONARY ARTERY W/O ANG P ADOBE ARCHITECT Status: Chronic Priority: Low Current Visit: No Qualifiers: Coronary Disease-Associated Artery/Lesion type: [place] artery [place] vs. transplanted heart: [place] heart Associated angina: without angina Qualified Code(s): I25.10 - Atherosclerotic heart disease of [place] coronary artery without angina pectoris (4) Mixed hyperlipidemia SNOMED Code(s): 899951584 Code(s): E78.2 - MIXED HYPERLIPIDEMIA Status: Chronic Priority: Low Current Visit: No (5) Asthma SNOMED Code(s): 121390927 Code(s): J45.909 - UNSPECIFIED ASTHMA, UNCOMPLICATED Status: Chronic Priority: Medium Current Visit: No Qualifiers: Asthma severity: mild Asthma persistence: intermittent Asthma complication type: uncomplicated Qualified Code(s): J45.20 - Mild intermittent asthma, uncomplicated (6) Essential hypertension SNOMED Code(s): 83205750 Code(s): I10 - ESSENTIAL (PRIMARY) HYPERTENSION Status: Chronic Priority: Low Current Visit: No (7) Cognitive impairment SNOMED Code(s): 520648153 Code(s): R41.89 - OTH SYMPTOMS AND SIGNS W COGNITIVE FUNCTIONS AND AWARENESS Status: Chronic Priority: Low Current Visit: No (8) SCC (squamous cell carcinoma), ear SNOMED Code(s): 055733904 Code(s): C44.221 - SQUAMOUS CELL CARCINOMA SKIN/ UNSP EAR AND EXTRN AURIC CANAL Status: Acute Priority: Low Current Visit: No Qualifiers: Laterality: left Qualified Code(s): C44.229 - Squamous cell carcinoma of skin of left ear and external auricular canal (9) Acquired hypothyroidism SNOMED Code(s): 723928955 Code(s): E03.9 - HYPOTHYROIDISM, UNSPECIFIED Status: Chronic Priority: Low Current Visit: No (10) Osteoarthritis of right knee SNOMED Code(s): 378873352276444 Code(s): M17.11 - UNILATERAL PRIMARY OSTEOARTHRITIS, RIGHT KNEE Status: Chronic Priority: Low Current Visit: No Qualifiers: Osteoarthritis type: primary Qualified Code(s): M17.11 - Unilateral primary osteoarthritis, right knee - Problem List Review Problem List Initiated/Reviewed/Updated: Yes - Assessment Assessment:: 1. Parkinson's Disease 2. CAD 3. COPD 4. Mixed Hyperlipidemia 5. HTN 6. Asthma 7. Osteoarthritis of the Right Knee 8. Cognitive Impairment 9. SCC of Left Ear 10. 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 No changes with medications. Awaiting long term placement. CPR only. Plan to discharge once patient has decided on location of long term he would like to go to.
[2020-12-31] MEDS: Furosemide 20 MG Tab #OWN MED# PO SCH (08:58)
[2020-12-31] MEDS: CARBIDOPA PO SCH ×3 (08:58→21:34)
[2020-12-31] MEDS: Hypromellose 0.3% Ophth Soln 15 ML Bottle EYEBOTH SCH ×2 (08:58→21:33)
[2020-12-31] MEDS: LEVODOPA PO SCH ×3 (08:58→21:34)
[2020-12-31] MEDS: Multivitamins with Iron/Calcium/Folic Acid/Minerals Tab PO SCH (08:58)
[2020-12-31] MEDS: Cholecalciferol (Vitamin D3) 25 MCG Tab PO SCH (08:58)
[2020-12-31] MEDS: PULMICORT FLEXHALER 180 MCG INH SCH ×2 (08:59→21:39)
[2020-12-31] MEDS: DONEPEZIL 10 MG PO SCH (21:34)
[2021-01-01] MEDS: Aspirin 325 MG Tab.EC PO PRN (09:41)
[2021-01-01] MEDS: Multivitamins with Iron/Calcium/Folic Acid/Minerals Tab PO SCH (09:41)
[2021-01-01] MEDS: Cholecalciferol (Vitamin D3) 25 MCG Tab PO SCH (09:41)
[2021-01-01] MEDS: Hypromellose 0.3% Ophth Soln 15 ML Bottle EYEBOTH SCH ×2 (09:42→19:39)
[2021-01-01] MEDS: Furosemide 20 MG Tab #OWN MED# PO SCH (09:42)
[2021-01-01] MEDS: LEVODOPA PO SCH ×3 (09:42→19:39)
[2021-01-01] MEDS: PULMICORT FLEXHALER 180 MCG INH SCH ×2 (09:42→19:38)
[2021-01-01] MEDS: CARBIDOPA PO SCH ×3 (09:42→19:39)
[2021-01-01] MEDS: DONEPEZIL 10 MG PO SCH (19:38)
[2021-01-02] MEDS: Furosemide 20 MG Tab #OWN MED# PO SCH (07:43)
[2021-01-02] MEDS: LEVODOPA PO SCH ×3 (07:43→19:24)
[2021-01-02] MEDS: Hypromellose 0.3% Ophth Soln 15 ML Bottle EYEBOTH SCH ×2 (07:43→19:23)
[2021-01-02] MEDS: CARBIDOPA PO SCH ×3 (07:43→19:24)
[2021-01-02] MEDS: PULMICORT FLEXHALER 180 MCG INH SCH ×2 (07:43→19:24)
[2021-01-02] MEDS: Acetaminophen 325 MG Tab PO PRN (07:44)
[2021-01-02] MEDS: Multivitamins with Iron/Calcium/Folic Acid/Minerals Tab PO SCH (07:44)
[2021-01-02] MEDS: Cholecalciferol (Vitamin D3) 25 MCG Tab PO SCH (07:44)
[2021-01-02] MEDS: DONEPEZIL 10 MG PO SCH (19:23)
[2021-01-03] MEDS: Cholecalciferol (Vitamin D3) 25 MCG Tab PO SCH (07:58)
[2021-01-03] MEDS: Multivitamins with Iron/Calcium/Folic Acid/Minerals Tab PO SCH (07:58)
[2021-01-03] MEDS: CARBIDOPA PO SCH ×3 (07:59→20:18)
[2021-01-03] MEDS: Furosemide 20 MG Tab #OWN MED# PO SCH (07:59)
[2021-01-03] MEDS: LEVODOPA PO SCH ×3 (07:59→20:18)
[2021-01-03] MEDS: Hypromellose 0.3% Ophth Soln 15 ML Bottle EYEBOTH SCH ×2 (08:00→20:20)
[2021-01-03] MEDS: PULMICORT FLEXHALER 180 MCG INH SCH ×2 (08:00→20:20)
[2021-01-03] MEDS: DONEPEZIL 10 MG PO SCH (20:18)
[2021-01-04] MEDS: LEVODOPA PO SCH ×3 (09:28→20:36)
[2021-01-04] MEDS: Hypromellose 0.3% Ophth Soln 15 ML Bottle EYEBOTH SCH ×2 (09:28→20:37)
[2021-01-04] MEDS: PULMICORT FLEXHALER 180 MCG INH SCH ×2 (09:28→20:35)
[2021-01-04] MEDS: Multivitamins with Iron/Calcium/Folic Acid/Minerals Tab PO SCH (09:28)
[2021-01-04] MEDS: Furosemide 20 MG Tab #OWN MED# PO SCH (09:28)
[2021-01-04] MEDS: Cholecalciferol (Vitamin D3) 25 MCG Tab PO SCH (09:28)
[2021-01-04] MEDS: CARBIDOPA PO SCH ×3 (09:28→20:36)
[2021-01-04] MEDS: DONEPEZIL 10 MG PO SCH (20:36)
[2021-01-05] MEDS: Acetaminophen 325 MG Tab PO PRN (07:57)
[2021-01-05] MEDS: PULMICORT FLEXHALER 180 MCG INH SCH ×2 (07:57→20:13)
[2021-01-05] MEDS: Hypromellose 0.3% Ophth Soln 15 ML Bottle EYEBOTH SCH ×2 (07:57→20:14)
[2021-01-05] MEDS: Multivitamins with Iron/Calcium/Folic Acid/Minerals Tab PO SCH (07:58)
[2021-01-05] MEDS: Furosemide 20 MG Tab #OWN MED# PO SCH (07:58)
[2021-01-05] MEDS: LEVODOPA PO SCH ×3 (07:58→20:13)
[2021-01-05] MEDS: CARBIDOPA PO SCH ×3 (07:58→20:13)
[2021-01-05] MEDS: Cholecalciferol (Vitamin D3) 25 MCG Tab PO SCH (07:58)
[2021-01-05] MEDS: DONEPEZIL 10 MG PO SCH (20:13)
[2021-01-06] MEDS: LEVODOPA PO SCH ×3 (07:31→19:32)
[2021-01-06] MEDS: Furosemide 20 MG Tab #OWN MED# PO SCH (07:31)
[2021-01-06] MEDS: CARBIDOPA PO SCH ×3 (07:31→19:32)
[2021-01-06] MEDS: Cholecalciferol (Vitamin D3) 25 MCG Tab PO SCH (07:32)
[2021-01-06] MEDS: Acetaminophen 325 MG Tab PO PRN (07:32)
[2021-01-06] MEDS: PULMICORT FLEXHALER 180 MCG INH SCH ×2 (07:32→19:31)
[2021-01-06] MEDS: Hypromellose 0.3% Ophth Soln 15 ML Bottle EYEBOTH SCH ×2 (07:33→19:31)
[2021-01-06] MEDS: Multivitamins with Iron/Calcium/Folic Acid/Minerals Tab PO SCH (07:33)
[2021-01-06] MEDS: DONEPEZIL 10 MG PO SCH (19:32)
[2021-01-07] MEDS: Cholecalciferol (Vitamin D3) 25 MCG Tab PO SCH (08:48)
[2021-01-07] MEDS: Multivitamins with Iron/Calcium/Folic Acid/Minerals Tab PO SCH (08:48)
[2021-01-07] MEDS: Hypromellose 0.3% Ophth Soln 15 ML Bottle EYEBOTH SCH ×2 (08:49→19:41)
[2021-01-07] MEDS: Furosemide 20 MG Tab #OWN MED# PO SCH (08:53)
[2021-01-07] MEDS: CARBIDOPA PO SCH ×3 (08:54→19:46)
[2021-01-07] MEDS: LEVODOPA PO SCH ×3 (08:54→19:46)
[2021-01-07] MEDS: PULMICORT FLEXHALER 180 MCG INH SCH ×2 (08:55→19:40)
[2021-01-07] MEDS: DONEPEZIL 10 MG PO SCH (19:46)
[2021-01-08] MEDS: Cholecalciferol (Vitamin D3) 25 MCG Tab PO SCH (07:50)
[2021-01-08] MEDS: PULMICORT FLEXHALER 180 MCG INH SCH ×2 (07:50→19:27)
[2021-01-08] MEDS: LEVODOPA PO SCH ×3 (07:50→19:27)
[2021-01-08] MEDS: Multivitamins with Iron/Calcium/Folic Acid/Minerals Tab PO SCH (07:50)
[2021-01-08] MEDS: CARBIDOPA PO SCH ×3 (07:50→19:27)
[2021-01-08] MEDS: Furosemide 20 MG Tab #OWN MED# PO SCH (07:50)
[2021-01-08] MEDS: Hypromellose 0.3% Ophth Soln 15 ML Bottle EYEBOTH SCH ×2 (07:50→19:27)
[2021-01-08] MEDS: DONEPEZIL 10 MG PO SCH (19:27)
[2021-01-09] MEDS: LEVODOPA PO SCH ×3 (07:53→19:27)
[2021-01-09] MEDS: Hypromellose 0.3% Ophth Soln 15 ML Bottle EYEBOTH SCH ×2 (07:53→19:28)
[2021-01-09] MEDS: CARBIDOPA PO SCH ×3 (07:53→19:27)
[2021-01-09] MEDS: PULMICORT FLEXHALER 180 MCG INH SCH ×2 (07:53→19:28)
[2021-01-09] MEDS: Cholecalciferol (Vitamin D3) 25 MCG Tab PO SCH (07:53)
[2021-01-09] MEDS: Multivitamins with Iron/Calcium/Folic Acid/Minerals Tab PO SCH (07:53)
[2021-01-09] MEDS: Furosemide 20 MG Tab #OWN MED# PO SCH (07:54)
[2021-01-09] MEDS: DONEPEZIL 10 MG PO SCH (19:27)
[2021-01-10] MEDS: PULMICORT FLEXHALER 180 MCG INH SCH ×2 (07:40→23:13)
[2021-01-10] MEDS: Furosemide 20 MG Tab #OWN MED# PO SCH (07:40)
[2021-01-10] MEDS: LEVODOPA PO SCH ×3 (07:40→23:17)
[2021-01-10] MEDS: Multivitamins with Iron/Calcium/Folic Acid/Minerals Tab PO SCH (07:40)
[2021-01-10] MEDS: Cholecalciferol (Vitamin D3) 25 MCG Tab PO SCH (07:40)
[2021-01-10] MEDS: Hypromellose 0.3% Ophth Soln 15 ML Bottle EYEBOTH SCH ×2 (07:40→23:12)
[2021-01-10] MEDS: CARBIDOPA PO SCH ×3 (07:40→23:17)
[2021-01-10] MEDS: DONEPEZIL 10 MG PO SCH (23:11)
[2021-01-11] MEDS: Hypromellose 0.3% Ophth Soln 15 ML Bottle EYEBOTH SCH ×2 (09:22→20:08)
[2021-01-11] MEDS: CARBIDOPA PO SCH ×3 (09:23→20:09)
[2021-01-11] MEDS: LEVODOPA PO SCH ×3 (09:23→20:09)
[2021-01-11] MEDS: Multivitamins with Iron/Calcium/Folic Acid/Minerals Tab PO SCH (09:23)
[2021-01-11] MEDS: Furosemide 20 MG Tab #OWN MED# PO SCH (09:23)
[2021-01-11] MEDS: Cholecalciferol (Vitamin D3) 25 MCG Tab PO SCH (09:23)
[2021-01-11] MEDS: PULMICORT FLEXHALER 180 MCG INH SCH ×2 (09:25→20:08)
[2021-01-11] MEDS: DONEPEZIL 10 MG PO SCH (20:09)
[2021-01-12 06:05] VITALS: BP 119/95; PULSE 43
[2021-01-12] MEDS: CARBIDOPA PO SCH ×2 (09:16→12:54)
[2021-01-12] MEDS: LEVODOPA PO SCH ×2 (09:16→12:54)
[2021-01-12] MEDS: Furosemide 20 MG Tab #OWN MED# PO SCH (09:16)
[2021-01-12] MEDS: Multivitamins with Iron/Calcium/Folic Acid/Minerals Tab PO SCH (09:17)
[2021-01-12] MEDS: PULMICORT FLEXHALER 180 MCG INH SCH (09:17)
[2021-01-12] MEDS: Cholecalciferol (Vitamin D3) 25 MCG Tab PO SCH (09:17)
[2021-01-12] MEDS: Hypromellose 0.3% Ophth Soln 15 ML Bottle EYEBOTH SCH (09:17)
--- NOTE | 2021-01-12 09:58 | DISCH ---
HISTORY OF PRESENT ILLNESS: The patient was admitted to the hospital on 11/22/2020 under observation for concerns from the emergency department for generalized weakness. The patient does live at home alone by himself and his primary caregiver is his neighbor, who had noticed over the past couple of weeks the patient had been getting much weaker and sitting more in his chair; therefore, 911 was contacted. In the emergency room, workup was essentially negative; however, the patient had considerable weakness; therefore, he was admitted to observation. The patient did not qualify for acute care; therefore, he elected to go to self-pay swing bed to work with physical therapy. BRIEF HOSPITAL COURSE: The patient remained hemodynamically stable and afebrile. No infections. Physical therapy signed off on the patient a week and a half ago. He did not require any occupational therapy. The patient did well with therapy and met all goals. Lab work remained stable. No changes with medications while on swing bed. CONSULTATIONS: Physical Therapy, Occupational Therapy, Case Management. DIET: Heart healthy. ACTIVITY: Per Physical Therapy. CODE STATUS: CPR only. LABORATORY STUDIES: None. IMAGING STUDIES: None. DISCHARGE MEDICATIONS: 1. Acetaminophen 650 mg 1 tablet p.o. every 4 hours as needed. 2. Aspirin 325 mg p.o. daily as needed. 3. Carbidopa/levodopa 1 tablet p.o. 3 times daily. 4. Cholecalciferol 25 mcg 1 tablet p.o. daily. 5. Donepezil 10 mg 1 tablet p.o. daily at bedtime. 6. Furosemide 20 mg 1 tablet p.o. daily. 7. Genteal Tears 1 drop to both eyes every 8 hours as needed. 8. Genteal Tears 1 drop to both eyes twice daily. 9. Multivitamin 1 tablet p.o. daily. REVIEW OF SYSTEMS: Skin: Negative. Respiratory: Negative. Cardiovascular: Negative. Abdomen: Negative. Extremities: Negative. Neurological: Negative. DISCHARGE PHYSICAL EXAMINATION: Vital Signs: Temperature 97.9, pulse 72, blood pressure 119/82, respiratory rate 16, oxygen saturation 97% on room air, weight 158.2 pounds, height 5 feet 6 inches. Skin: Intact, warm and dry. Respiratory: Lungs are decreased throughout, otherwise clear. Cardiovascular: Regular rate and rhythm, no murmur. Abdomen: Soft, nontender. Bowel sounds are normoactive x4. Extremities: No edema. Neurological: The patient is alert. The patient is very hard of hearing. The patient is cooperative. No focal neurological deficits. General: The patient is alert. The patient is cooperative. The patient does not appear to be in any acute distress. ASSESSMENT: 1. Parkinson disease. 2. Coronary artery disease. 3. Chronic obstructive pulmonary disease. 4. Mixed hyperlipidemia. 5. Hypertension. 6. Asthma. 7. Osteoarthritis of the right knee. 8. Cognitive impairment. 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 10.Acquired hypothyroidism. 11.Progressive supranuclear palsy. PLAN: The patient will be discharged to the [facility] today. No changes in medications. The patient is CPR only. Will consult Physical and Occupational Therapy at the long term. The patient will be seen by me tomorrow for admission to the long term. The patient was discharged from the swing bed unit in hemodynamically stable condition. This patient was seen and examined by me as an [facility] provider. TB: 01/12/2021 07:29:50 MODL: 01/12/2021 09:08:13 /[id number]
== END 2021-01-12 13:45 | DRG 948 ==
LOC: VM.MS 21:10
PROVIDERS: ADMIT Nurse Practitioner Family; ATTEND Nurse Practitioner Family
DX: R53.1 Weakness (principal); G20 Parkinson's disease; I25.10 Atherosclerotic heart disease of native coronary artery without angina pectoris; J44.9 Chronic obstructive pulmonary disease, unspecified; E78.2 Mixed hyperlipidemia; I10 Essential (primary) hypertension; M17.11 Unilateral primary osteoarthritis, right knee; Z20.822 Contact with and (suspected) exposure to COVID-19; E03.9 Hypothyroidism, unspecified; G83.9 Paralytic syndrome, unspecified; G31.84 Mild cognitive impairment of uncertain or unknown etiology; C44.229 Squamous cell carcinoma of skin of left ear and external auricular canal; H61.23 Impacted cerumen, bilateral
CPT/HCPCS: 36415; 70450; 80048; 80053; 84436; 84443; 84480; 84481; 84482; 85025; 85027; 86376; 86800; 90662; 94640; 97110-GO; 97110-GP; 97112-GP; 97116-GP; A9270-GY; G0008; J1650; U0002